=== PATIENT | female | born 1965 | race Caucasian/White ===

== ENCOUNTER 2019-04-16 02:21 | Emergency (ER) | payer MEDICARE, MEDICAID, SELFPAY ==
[2019-04-16 02:26] VITALS: BP 153/83; PULSE 94; RESP 18; TEMP 36.7; O2SAT 96; BMI 33.2
--- NOTE | 2019-04-16 02:41 | ED_ITS ---
Entered by Eliz Ruiz, acting as scribe for HPI - Extremity Injury (Upper) General: Chief Complaint: Extremity Injury, Lower Stated Complaint: L SHOULDER/L HIP PAIN Time Seen by Provider: 04/16/19 02:37 Source: patient Mode of arrival: ambulatory History of Present Illness: HPI narrative: 54 yo f came to the er pov with left hip and left shoulder injury. Onset was today. Pt states that she cannot sleep due to her fall. Pt is denying any headache at this time. MD complaint: injury to: left (shoulder and hip) Other Extremity Injury: Left: shoulder Other injuries: LLE (hip) Place: home Severity: mild Relieving factors: none Exacerbating factors: none Context: fall Review of Systems General: Reports: other (negative unless marked) Const: Denies: fever or chills Eyes: Denies: change in vision ENMT: Denies: throat pain or mouth pain Card: Denies: chest pain Resp: Denies: shortness of breath GI: Denies: abdominal pain, nausea, vomiting or diarrhea : Denies: difficulty urinating Musc: Reports: extremity pain and joint pain; Denies: back pain Skin/Breast: Denies: rash Neuro: Denies: headache or behavioral changes Psych: Denies: depression Endo: Denies: excessive urination [place]/Lymph: Denies: easy bruising All/Imm: Denies: hives PFSH ED PFSH: Statuses (acute, chronic, etc) shown below reflect problem list status as previously entered and may not be historically accurate Social History Smoking and tobacco status: former smoker Physical Exam Const: COMMON NORMALS: no apparent distress, oriented x3 and healthy appearing HENMT: COMMON NORMALS: normocephalic and external nose normal HEAD & SCALP: normocephalic NOSE: external nose normal Eye: COMMON NORMALS: PERRL PUPIL: Yes PERRL Neck/C-Spine: COMMON NORMALS: full ROM and no lymphadenopathy Chest: COMMONS NORMALS: inspection of chest normal Resp: COMMON NORMALS: normal respiratory effort, no use of accessory muscles and clear to auscultation bilaterally AUSCULTATION: clear to auscultation bilaterally Cardio: COMMON NORMALS: regular rate and regular rhythm RATE: regular rate RHYTHM: regular rhythm GI: COMMON NORMALS: normal to inspection, nondistended, normoactive bowel freya nds, soft to palpation, non-tender and no masses PALPATION: Yes soft Back/Pelvis: THORACIC SPINE/UPPER BACK: Yes normal to inspection OTHER: tender over left hip and shoulder with no abnormality Extremity: COMMON NORMALS: normal to inspection, full ROM and normal capillary refill Neuro: COMMON NORMALS: oriented x3 Psych: COMMON NORMALS: mental status grossly normal and cooperative Skin: COMMON NORMALS: no rashes or lesions noted GENERAL SKIN EXAM: no rashes or lesions noted Course Vital Signs: Vital signs: Vital Signs Temperature 98.4 F 04/16/19 03:16 Pulse Rate 95 04/16/19 03:16 Respiratory Rate 18 04/16/19 03:16 Blood Pressure 124/103 04/16/19 03:16 Pulse Oximetry 96 04/16/19 03:16 MDM - Extremity Injury (Upper) MDM Narrative: Medical decision making narrative: pt presents here with contusion from a fall. xr here is normal. pt is stable for discharge Discharge Plan Discharge Patient Disposition: Home, Self-Care Clinical Impression: Fall Qualifiers: Encounter type: initial encounter Qualified Code(s): W19.XXXA - Unspecified fall, initial encounter Contusion Qualifiers: Encounter type: initial encounter Contusion area: upper arm Laterality: left Qualified Code(s): S40.022A - Contusion of left upper arm, initial encounter Condition: Stable Prescriptions: New EC-Naprosyn 500 mg tablet,delayed release (DR/EC) 500 mg PO BID PRN (Reason: pain) Qty: 20 RF: 0 No Action aripiprazole [Abilify] 5 mg tablet 5 mg PO ONCE RF: 0 atorvastatin 80 mg tablet 80 mg PO ONCE RF: 0 cetirizine [All Day Allergy (cetirizine)] 10 mg tablet 10 mg PO ONCE RF: 0 diazepam 2 mg tablet 2 mg PO ONCE RF: 0 ferrous sulfate 325 mg (65 mg iron) tablet 325 mg PO .every other day RF: 0 levothyroxine 150 mcg tablet 150 mcg PO ONCE RF: 0 levothyroxine 25 mcg tablet 25 mcg PO ONCE RF: 0 magnesium oxide 400 mg magnesium capsule 400 mg PO ONCE RF: 0 metformin 500 mg tablet 1,000 mg PO BID RF: 0 metoprolol tartrate 25 mg tablet 25 mg PO DAILY RF: 0 nitroglycerin 0.4 mg tablet, sublingual 0.4 mg SUBLINGUAL ONCE PRN (Reason: chest pain) RF: 0 nortriptyline 25 mg capsule 25 mg PO ONCE RF: 0 pantoprazole [Protonix] 40 mg tablet,delayed release (DR/EC) 40 mg PO BID RF: 0 trazodone 100 mg tablet 100 mg PO .Q HS RF: 0 venlafaxine [Effexor XR] 75 mg capsule,extended release 24hr 75 mg PO QAM RF: 0 acetaminophen 500 mg tablet 1,000 mg PO Q8H PRN (Reason: fever or pain) RF: 0 cyanocobalamin (vitamin B-12) 2,000 mcg tablet 2,000 mcg PO DAILY RF: 0 fluticasone propionate [Flonase Allergy Relief] 50 mcg/actuation spray,suspension 1 spray INTRANASAL BID RF: 0 Levemir FlexTouch U-100 Insuln 100 unit/mL (3 mL) insulin pen 76 unit SUBCUT DAILY RF: 0 Victoza 2-Margarito 0.6 mg/0.1 mL (18 mg/3 mL) pen injector 1.8 mg SUBCUT Q24H RF: 0 polyethylene glycol 3350 [Miralax] 17 gram/dose powder 17 gm PO DAILY PRN (Reason: constipation) RF: 0 sodium chloride [Saline Nasal] 0.65 % aerosol,spray 1 spray INTRANASAL DAILY PRN (Reason: nasal congestion) RF: 0 lithium carbonate 300 mg tablet extended release 300 mg PO DAILY RF: 0 Discharge Orders: Discharge Order (Routine); Ordered 04/16/19 Ordered By: Arun Hernandez Referrals: Alberto Ordonez MD [Family Provider] - (in 3-5 days) Discharge Activity: Resume usual activity Patient Instructions: Contusion Discharge Date/Time: 04/16/19 04:10 Coding Level of Care Code ED Pressing Machine Operator for Chg Fwd The documentation recorded by the Joseph foster Stephanie Lyn, accurately reflects the service I personally performed and the decisions made by David royal Korby, MD Apr 16, 2019 02:21
--- NOTE | 2019-04-16 02:46 | XR_ITS ---
WS: [id number] Left shoulder, 3 views, 04/16/2019 Clinical Data: fall Comparison: None. Findings: No fractures or dislocations are seen. The AC joint is normal. The adjacent left clavicle, left scapu la and ribs are normal. The soft tissues are unremarkable. There are clips adjacent to the left side of the C5 and 6 vertebral bodies from surgery. XR/XR shoulder LT min 2V* [id number] Impression: Negative left shoulder.
--- NOTE | 2019-04-16 02:46 | XR_ITS ---
WS: [id number] Left hip, AP and frog leg, 04/16/2019 Clinical Data: fall Comparison: Left hip x-ray, 01/12/2019 Findings: No fractures or dislocations are seen. The hip joint is intact. The soft tissues are not remarkable. The adjacent pelvis is normal. XR/XR hip LT 2-3V wo/w pel* [id number] Impression: Negative left hip.
[2019-04-16] MEDS: HYDROcodone-acetaminophen 5-325 mg Tablet 1 TAB PO (03:05)
[2019-04-16 03:16] VITALS: BP 124/103; PULSE 95; RESP 18; TEMP 36.9; O2SAT 96
[2019-04-16 04:08] VITALS: BP 133/83; PULSE 94; RESP 18; TEMP 37.1; O2SAT 96
== END 2019-04-16 04:10 | disposition home or self-care (01) ==
PROVIDERS: Emergency Provider Emergency Medicine; Family Provider Family Medicine
DX: S40.022A Contusion of left upper arm, initial encounter (principal); W19.XXXA Unspecified fall, initial encounter; Y92.009 Unspecified place in unspecified non-institutional (private) residence as the place of occurrence of the external cause
CPT/HCPCS: 73030; 73502; 99281

== ENCOUNTER 2019-04-17 09:46 | Outpatient (CLI) | payer MEDICARE, MEDICAID, SELFPAY ==
--- NOTE | 2019-04-14 | XR_ITS ---
WS: [id number] LEFT HIP HISTORY: LEFT HIP PAIN COMPARISON: 01/12/2019 LEFT hip: No acute fracture or dislocation. Osteophytic ridging around the LEFT acetabulum is similar to the prior study. No fracture or dislocation. No bone destruction. XR/XR hip LT 2-3V wo/w pel* [id number] IMPRESSION: 1. No hip fracture. 2. Mild osteophytic ridging around the acetabulum, similar to the prior study.
--- NOTE | 2019-04-14 | XR_ITS ---
WS: [id number] LEFT SHOULDER: 3 VIEW(S) TECHNIQUE: Internal and external rotation with Y view. HISTORY: ROTATOR CUFF SYNDROME LEFT COMPARISON: None available. No fracture or dislocation or soft tissue abnormality. Mild narrowing of the AC joint and hypertrophic osteophytes. XR/XR shoulder LT min 2V* [id number] IMPRESSION: Mild AC joint osteoarthritis.
== END 2019-04-17 09:47 | disposition home or self-care (01) ==
PROVIDERS: Family Provider Family Medicine; Visit Provider Family Medicine
DX: M75.102 Unspecified rotator cuff tear or rupture of left shoulder, not specified as traumatic (principal); M25.552 Pain in left hip

== ENCOUNTER → 2019-04-20 16:39 | Outpatient (BNVA) | payer MEDICARE, MEDICAID, SELFPAY | PROVIDERS: Family Provider Family Medicine; PCP Family Medicine; Visit Provider Social Worker | DX: F33.3 Major depressive disorder, recurrent, severe with psychotic symptoms (principal); F06.1 Catatonic disorder due to known physiological condition; F43.12 Post-traumatic stress disorder, chronic; F60.3 Borderline personality disorder | CPT/HCPCS: 90832 ==

== ENCOUNTER 2019-04-21 11:27 | Emergency (ER) | payer MEDICARE, MEDICAID, SELFPAY ==
[2019-04-21 11:24] VITALS: BMI 31.6
[2019-04-21 11:28] VITALS: BP 151/109; PULSE 102; RESP 18; TEMP 36.8; O2SAT 95
--- NOTE | 2019-04-21 11:28 | ED_ITS ---
Entered by Debora Jefferson, acting as scribe for Dorcas Fishman MD, [facility] [place] HPI - Psych General: Chief Complaint: Psychiatric Symptoms Stated Complaint: HEADACHE/ AMS Source: patient Mode of arrival: EMS Limitations: no limitations History of Present Illness: HPI Narrative: 54 yo Female presents to ED with complaint of psychiatric symptoms. Pt states she was taking her morning nap like she does every day and then facility staff came in and wanted to know if she could sit up. Pt states that she sat up and that Grace got in her face and asked her what medications she has been taking. Pt states she has been taking Benadryl because she has chronic allergies. Pt states that she took 2 Benadryl this morning. Pt states that the facility staff told her that couldn't have been all she took because she shouldn't be that out of it. Pt states that she wasn't out of it, she was just sleepy. Pt states that she got irritated because the facility staff kept asking her the same questions. Pt states that she can give the Benadryl to the facility staff so that they can dispense the medication to her. Pt denies any suicidal or homicidal ideations. Pt states that she fell last week and she hurt her left ankle and left shoulder. No hallucinations MD complaint: other (Pt states she doesn't know why she is here) Onset (ago): minute(s) (Just prior to arrival) Duration: resolved prior to arrival Relieving factors: none Exacerbating factors: none Associated psychiatric symptoms: none Associated symptoms: Deny no associated symptoms, auditory hallucinations, visual hallucinations, delusions, depression, homicidal ideation, suicidal ideation, racing thoughts or other Treatments prior to arrival: none Review of Systems General: Reports: 10 or more systems reviewed and unremarkable except in HPI and below Musc: Reports: extremity pain (left ankle and shoulder pain post fall last week) Neuro: Reports: headache Psych: Denies: depression, visual hallucinations, auditory hallucinations, suicidal ideation or homicidal ideation PFSH ED PFSH: Statuses (acute, chronic, etc) shown below reflect problem list status as previously entered and may not be historically accurate Medical History (Updated 04/21/19 @ 16:24 by Dorcas Fishman MD, [facility] [place]) Anxiety (Acute) Atrial fibrillation/flutter (Acute) Bipolar disorder (Acute) CAD (coronary artery disease) (Acute) Cardiomyopathy (Acute) CHF (congestive heart failure) (Acute) COPD (chronic obstructive pulmonary disease) (Acute) Depression (Acute) Diabetes (Acute) HTN (hypertension) (Acute) Hyperglycemia (Acute) Hyperlipidemia (Acute) Hypokalemia (Acute) Myocardial infarction (Acute) Psychosis (Acute) Thyroid cancer (Acute) Surgical History (Updated 04/21/19 @ 12:53 by Debora Jefferson) History of appendectomy (Acute) History of bladder suspension procedure (Acute) History of breast augmentation (Acute) History of breast biopsy (Acute) History of (Acute) History of cholecystectomy (Acute) History of coronary angioplasty (Acute) History of hysterectomy (Acute) History of thyroidectomy (Acute) History of tonsillectomy (Acute) Hx of breast reduction, elective (Acute) Social History Smoking and tobacco status: former smoker Physical Exam Const: COMMON NORMALS: no apparent distress, average body habitus, oriented x3, no limitations, healthy appearing, alert and well nourished GENERAL APPEARANCE: well kempt HENMT: COMMON NORMALS: normocephalic, head/scalp atraumatic, hearing grossly normal bilaterally, external ears normal, EAC's normal, TM's normal bilaterally, external nose normal, nasal mucous membranes and turbinates normal, moist oral mucous membranes, oropharynx normal, dentition normal and gingiva normal HEAD & SCALP: normocephalic and atraumatic NOSE: external nose normal and nasal mucous membranes and turbinates normal EXTERNAL EAR: Yes external ears normal EXTERNAL AUDITORY CANAL: EAC's normal TYMPANIC MEMBRANE: TM's normal bilaterally Eye: COMMON NORMALS: PERRL, EOMs intact bilaterally, conjunctivae normal, no scleral icterus, no papilledema, normal visual cuevas by confrontation and fundi normal bilaterally CONJUNCTIVA: Yes conjunctivae normal PUPIL: Yes PERRL DIRECT OPHTHALMOSCOPY: Yes no papilledema and Yes fundi normal bilaterally Neck/C-Spine: COMMON NORMALS: full ROM, supple, no meningeal signs, no JVD and no carotid bruits Chest: COMMONS NORMALS: inspection of chest normal and palpation of chest normal Resp: COMMON NORMALS: normal respiratory effort, no retractions, no use of accessory muscles, clear to auscultation bilaterally and percussion normal AUSCULTATION: clear to auscultation bilaterally PERCUSSION: percussion normal Cardio: COMMON NORMALS: no JVD, regular rate, regular rhythm, S1 normal heart sound, S2 normal heart sound, no gallops, no clicks, no murmurs, no rub and peripheral pulses 2+ throughout RATE: regular rate RHYTHM: regular rhythm HEART SOUNDS: S1 normal and S2 normal PERIPHERAL PULSES: pulses 2+ throughout GI: COMMON NORMALS: normal to inspection, nondistended, normoactive bowel sounds, soft to palpation, non-tender, no hepatosplenomegaly, no masses and no bruits PALPATION: Yes soft and Yes no hepatosplenomegaly : COMMON NORMALS: Yes no CVA tenderness BLADDER/KIDNEY EXAM: Yes no CVA tenderness Back/Pelvis: COMMON NORMALS: no CVA tenderness Extremity: COMMON NORMALS: normal to inspection, full ROM, normal capillary refill, no joint enlargement, no clubbing, cyanosis or edema, no calf tenderness and no pedal edema Neuro: COMMON NORMALS: oriented x3 SENSORIUM/ORIENTATION: Yes alert MENINGEAL SIGNS: Yes no meningeal signs Psych: COMMON NORMALS: mental status grossly normal, thought process normal, cooperative, affect normal, speech normal, activity/motor behavior normal, denies hallucinations, denies homicidal ideation and denies suicidal ideation APPEARANCE: Yes well kempt ATTITUDE: Yes calm and Yes engaged ACTIVITY/MOTOR BEHAVIOR: Yes appropriate eye contact SPEECH: Yes normal speech THOUGHT PROCESS: normal thought process THOUGHT CONTENT: Yes normal thought content and No delusion(s) ATTENTION/CONCENTRATION: Yes attention grossly intact Skin: COMMON NORMALS: no rashes or lesions noted, no wounds, skin turgor normal, no jaundice, no petechiae and no mottling GENERAL SKIN EXAM: no rashes or lesions noted and turgor normal MDM - Psych Lab Data: Labs: Lab Results 04/21/19 04/21/19 04/21/19 Range/Units 11:48 11:48 11:48 WBC (4.0-10.0) 10^3/ uL RBC (4.1-5.3) 10^6/u L Hgb (11.5-15.3) g/dL Hct (37.0-47.0) % MCV (81-99) fL MCH (28.0-34.0) pg MCHC (30.0-36.0) g/dL RDW (12.1-15.1) % Plt Count (130-400) 10^3/c mm MPV (7.4-10.4) fL Neut % (Auto) % Lymph % (Auto) % [place] % (Auto) % Eos % (Auto) % Baso % (Auto) % Neut # (Auto) (1.8-7.7) 10^3/u L Lymph # (Auto) (0.8-4.8) 10^3/u L [place] # (Auto) (0.2-0.9) 10^3/u L Eos # (Auto) (0.0-0.8) 10^3/u L Baso # (Auto) (0.0-0.1) 10^3/u L Nucleated RBC % (a uto) % Nucleated RBCs # /100WBC Sodium (136-145) mmol/L Potassium (3.5-5.1) mmol/L Chloride (98-107) mmol/L Carbon Dioxide (22-29) mmol/L Anion Gap (5-19) BUN (6-20) mg/dL Creatinine (0.5-0.9) mg/dL GFR Calculation (90-130) mL/min Glucose (74-109) mg/dL Calcium (8.6-10.0) mg/Dl Total Bilirubin (0.15-1.2) mg/dL AST (0-32) U/L ALT (0-33) U/L Alkaline Phosphata se (35-105) IU/L Total Protein (6.6-8.7) g/dL Albumin (3.5-5.2) g/dL Globulin (1.3-4.6) g/dL TSH (0.27-4.20) uIU/ mL HCG, Qual Negative (Negative) Urine Color Yellow (Yellow) Urine Appearance Clear (CLEAR) Urine pH 5.0 (5-7) Ur Specific Gravit y 1.015 (1.005-1.030) Urine Protein Neg (Negative) Urine Glucose (UA) Norm (Normal) Urine Ketones Negative (Negative) Urine Occult Blood Neg (Negative) Urine Nitrate Negative (Negative) Urine Bilirubin Neg (NEGATIVE) Urine Urobilinogen Norm (Negative) mg/dL Ur Leukocyte Lety ase Negative (Negative) Salicylates (3-10) mg/dL Urine Opiates Scre en Negative (Negative) ng/mL Acetaminophen (10-30) ug/mL Ur Barbiturates Sc reen Negative (Negative) ng/mL Ur Phencyclidine S crn Negative (Negative) ng/mL Ur Amphetamines Sc reen Negative (Negative) ng/mL U Benzodiazepines Scrn Positive H (Negative) ng/mL Urine Cocaine Scre en Negative (Negative) ng/mL U Marijuana (THC) Screen Negative (Negative) ng/mL Ethyl Alcohol (0-10) mg/dL 04/21/19 04/21/19 Range/Units 12:13 12:13 WBC 11.9 H (4.0-10.0) 10^3/ uL RBC 4.54 (4.1-5.3) 10^6/u L Hgb 12.9 (11.5-15.3) g/dL Hct 41.6 (37.0-47.0) % MCV 91.6 (81-99) fL MCH 28.4 (28.0-34.0) pg MCHC 31.0 (30.0-36.0) g/dL RDW 15.8 H (12.1-15.1) % Plt Count 339 (130-400) 10^3/c mm MPV 9.8 (7.4-10.4) fL Neut % (Auto) 76.4 % Lymph % (Auto) 15.6 % [place] % (Auto) 6.0 % Eos % (Auto) 0.9 % Baso % (Auto) 0.5 % Neut # (Auto) 9.1 H (1.8-7.7) 10^3/u L Lymph # (Auto) 1.9 (0.8-4.8) 10^3/u L [place] # (Auto) 0.7 (0.2-0.9) 10^3/u L Eos # (Auto) 0.1 (0.0-0.8) 10^3/u L Baso # (Auto) 0.1 (0.0-0.1) 10^3/u L Nucleated RBC % (a uto) 0 % Nucleated RBCs # 0.0 /100WBC Sodium 140 (136-145) mmol/L Potassium 3.5 (3.5-5.1) mmol/L Chloride 99 (98-107) mmol/L Carbon Dioxide 23 (22-29) mmol/L Anion Gap 21.5 H (5-19) BUN 10 (6-20) mg/dL Creatinine 0.9 (0.5-0.9) mg/dL GFR Calculation 65.8 L (90-130) mL/min Glucose 173 H (74-109) mg/dL Calcium 9.4 (8.6-10.0) mg/Dl Total Bilirubin 0.4 (0.15-1.2) mg/dL AST 50 H (0-32) U/L ALT 97 H (0-33) U/L Alkaline Phosphata se 107 H (35-105) IU/L Total Protein 7.6 (6.6-8.7) g/dL Albumin 4.5 (3.5-5.2) g/dL Globulin 3.1 (1.3-4.6) g/dL TSH 1.14 (0.27-4.20) uIU/ mL HCG, Qual (Negative) Urine Color (Yellow) Urine Appearance (CLEAR) Urine pH (5-7) Ur Specific Gravit y (1.005-1.030) Urine Protein (Negative) Urine Glucose (UA) (Normal) Urine Ketones (Negative) Urine Occult Blood (Negative) Urine Nitrate (Negative) Urine Bilirubin (NEGATIVE) Urine Urobilinogen (Negative) mg/dL Ur Leukocyte Lety ase (Negative) Salicylates < 0.3 L (3-10) mg/dL Urine Opiates Scre en (Negative) ng/mL Acetaminophen < 5.0 L (10-30) ug/mL Ur Barbiturates Sc reen (Negative) ng/mL Ur Phencyclidine S crn (Negative) ng/mL Ur Amphetamines Sc reen (Negative) ng/mL U Benzodiazepines Scrn (Negative) ng/mL Urine Cocaine Scre en (Negative) ng/mL U Marijuana (THC) Screen (Negative) ng/mL Ethyl Alcohol < 10 (0-10) mg/dL Imaging Data^: Left Ankle Xray: Radiologist's impression: [facility] [address] [place] [address] XRay Report Signed Patient: Bella Chandler [facility]#: [id number] : 1965Acct:[id number] Age/Sex: 54 / FADM Date: 04/21/19 Loc: ER Attending Dr: Ordering Physician: Dorcas Fishman MD, [facility] [place] Date of Service: 04/21/19 Procedure(s): XR ankle LT 2V 29993 Accession Number(s): [id number] Report Number: [id number] WS: [id number] LEFT ANKLE: 2 VIEW(S) TECHNIQUE: AP and lateral. HISTORY: fall, pain COMPARISON: None available. Normal anatomic alignment with no fracture or dislocation. No joint effusion or widening of the ankle mortise. No significant degenerative changes at the joint spaces. Enthesopathy distal Achilles tendon. XR/XR ankle LT 2V 55090 IMPRESSION: Negative LEFT ankle for fracture. Dictated By:Leonor Godinez DO Signed By:Leonor Godinez DOSigned Date/Time:04/21/19 1234 DD/ 1233 Discharge Plan Discharge Patient Disposition: Home, Self-Care Clinical Impression: Encounter for psychological evaluation, Worried well Condition: Stable Prescriptions: Continued atorvastatin 80 mg tablet 80 mg PO DAILY RF: 0 ferrous sulfate 325 mg (65 mg iron) tablet 325 mg PO .every other day RF: 0 magnesium oxide 400 mg magnesium capsule 400 mg PO ONCE RF: 0 metoprolol tartrate 25 mg tablet 25 mg PO DAILY RF: 0 nitroglycerin 0.4 mg tablet, sublingual 0.4 mg SUBLINGUAL ONCE PRN (Reason: chest pain) RF: 0 nortriptyline 25 mg capsule 25 mg PO BEDTIME RF: 0 pantoprazole [Protonix] 40 mg tablet,delayed release (DR/EC) 40 mg PO BID RF: 0 trazodone 100 mg tablet 100 mg PO BEDTIME RF: 0 cyanocobalamin (vitamin B-12) 2,000 mcg tablet 2,000 mcg PO DAILY RF: 0 fluticasone propionate [Flonase Allergy Relief] 50 mcg/actuation spray,suspension 1 spray INTRANASAL BID RF: 0 Victoza 2-Margarito 0.6 mg/0.1 mL (18 mg/3 mL) pen injector 1.8 mg SUBCUT Q24H RF: 0 polyethylene glycol 3350 [Miralax] 17 gram/dose powder 17 gm PO DAILY PRN (Reason: constipation) RF: 0 lithium carbonate 300 mg tablet extended release 300 mg PO DAILY RF: 0 naproxen [EC-Naprosyn] 500 mg tablet,delayed release (DR/EC) 500 mg PO BID PRN (Reason: pain) Qty: 20 RF: 0 levothyroxine 175 mcg Tablet 175 mcg PO DAILY RF: 0 metformin 1,000 mg Tablet 1,000 mg PO BID RF: 0 Saline Nasal 0.65 % Aerosol,[place] 1 spray INTRANASAL DAILY PRN (Reason: Nasal Congestion) RF: 0 Effexor XR 75 mg Capsule,Extended Release 24hr 75 mg PO DAILY RF: 0 Zyrtec 10 mg Tablet 10 mg PO DAILY RF: 0 Valium 2 mg Tablet 2 mg PO BEDTIME RF: 0 Abilify 5 mg Tablet 5 mg PO DAILY RF: 0 Levemir U-100 Insulin 100 unit/mL Solution 76 unit SUBCUT BEDTIME RF: 0 Discharge Orders: Discharge Order (Routine); Ordered 04/21/19 Ordered By: Dorcas Fishman Referrals: Alberto Ordonez MD [Primary Care Provider] - 1-3 days Activity Restrictions/Additional Instructions: Return for any new or worsening symptoms. It is important that you allow the facility to administer all your medications including the [id number] medications. This can avoid confusion and further emergency department evaluations. Follow-up with your primary care provider within 3 days. Coding Level of Care Code ED Combat Control for Chg Fwd Exam Problem Focused The documentation recorded by the Ronny foster Carmen, accurately reflects the service I personally performed and the decisions made by Kye royal Adegoke I, MD, [facility] [place]
[2019-04-21 11:59] VITALS: RESP 18
--- NOTE | 2019-04-21 12:04 | XR_ITS ---
WS: [id number] LEFT ANKLE: 2 VIEW(S) TECHNIQUE: AP and lateral. HISTORY: fall, pain COMPARISON: None available. Normal anatomic alignment with no fracture or dislocation. No joint effusion or widening of the ankle mortise. No significant degenerative changes at the joint spaces. Enthesopathy distal Achilles tendon. XR/XR ankle LT 2V [id number] IMPRESSION: Negative LEFT ankle for fracture.
[2019-04-21 12:13] LABS: Add Urine Microscopic? NO
[2019-04-21 12:14] LABS: Bilirubin Urine Neg (NEGATIVE); Blood Urine Neg (Negative); Glucose Urine UA Norm (Normal); HCG Qualitative Urine. Negative (Negative); Ketones Urine Negative (Negative); Leukocyte Esterase Urine Negative (Negative); Nitrate Urine Negative (Negative); Protein Urine Neg (Negative); Specific Gravity, Urine 1.015 (1.005-1.030); Urine Appearance Clear (CLEAR); Urine Color Yellow (Yellow); Urobilinogen Urine Norm (Negative)
[2019-04-21 12:24] LABS: Basophils # 0.1 10^3/uL (0.0-0.1); Basophils % 0.5 %; Eosinophils # 0.1 10^3/uL (0.0-0.8); Eosinophils % 0.9 %; Hematocrit 41.6 % (37.0-47.0); Hemoglobin 12.9 g/dL (11.5-15.3); Lymphocytes # 1.9 10^3/uL (0.8-4.8); Lymphocytes % 15.6 %; Mean Corpuscular Hemoglobin 28.4 pg (28.0-34.0); Mean Corpuscular Volume 91.6 fL (81-99); Mean Platelet Volume 9.8 fL (7.4-10.4); Monocytes # 0.7 10^3/uL (0.2-0.9); Neutrophils # 9.1 10^3/uL (1.8-7.7); Neutrophils % 76.4 %; Nucleated Red Blood Cells % 0 %; Platelet Count 339 10^3/cmm (130-400); Red Blood Count 4.54 10^6/uL (4.1-5.3); Red Cell Distribution Width 15.8 % (12.1-15.1); White Blood Count 11.9 10^3/uL (4.0-10.0)
[2019-04-21 12:35] LABS: Amphetamines Screen Urine Negative (Negative); Barbiturates Screen Urine Negative (Negative); Benzodiazepines Screen Urine Positive (Negative); Cocaine Screen Urine Negative (Negative); Opiate Screen Urine Negative (Negative); PCP Screen Urine Negative (Negative); THC Screen Urine Negative (Negative)
[2019-04-21 12:53] LABS: Alanine Aminotransferase 97 U/L (0-33); Albumin Level 4.5 g/dL (3.5-5.2); Alkaline Phosphatase 107 IU/L (35-105); Anion Gap 21.5 (5-19); Aspartate Amino Transferase 50 U/L (0-32); Blood Urea Nitrogen 10 mg/dL (6-20); Calcium 9.4 mg/Dl (8.6-10.0); Carbon Dioxide 23 mmol/L (22-29); Chloride 99 mmol/L (98-107); Globulin 3.1 g/dL (1.3-4.6); Glomerular Filtration Rate 65.8 mL/min (90-130); Glucose 173 mg/dL (74-109); Potassium 3.5 mmol/L (3.5-5.1); Sodium 140 mmol/L (136-145); Thyroid Stimulating Hormone 1.14 uIU/mL (0.27-4.20); Total Bilirubin 0.4 mg/dL (0.15-1.2); Total Protein 7.6 g/dL (6.6-8.7)
[2019-04-21 12:55] LABS: Acetaminophen < 5.0 ug/mL (10-30); Alcohol Level < 10 mg/dL (0-10); Salicylate < 0.3 mg/dL (3-10)
--- NOTE | 2019-04-21 12:56 | PC.NURSE ---
Patient sleeping but restless. 1:1 sitter with patient at bedside.
--- NOTE | 2019-04-21 14:32 | PC.NURSE ---
Patient sleeping. 1:1 sitter with patient.
--- NOTE | 2019-04-21 15:06 | PC.NURSE ---
Patient sleeping. 1:1 sitter at bedside.
[2019-04-21 15:19] VITALS: BP 185/105; PULSE 104; RESP 18; O2SAT 96
[2019-04-21 15:24] VITALS: RESP 17
[2019-04-21 16:00] VITALS: BP 185/105; PULSE 104; RESP 18; O2SAT 96
--- NOTE | 2019-04-21 17:10 | P.CONIM_ITS ---
Providers/Reason for Consult Consulting Physican/Specialty*: Altaf Crooks Reason for Consult*: Evaluation for need for inpatient psychiatric treatment and lethality. Requesting Physcian: ER. Primary Care Provider: Alberto Ordonez MD Psych Consult HPI History of Present Illness Bella Chandler is a 54 year old female known to the [facility] from previous hospitalizations the last of which stated: History of Present Illness Date of Service: Apr 02, 2019 Chief Complaint: I don't know why I'm here. Never tried to kill myself. I never said I was going to kill myself. HPI: History of present illness: Bella Chandler is a 54-year-old woman who was admitted on 96 hour involuntary commitment filed by multiple members of her residential care facility. She states that in fact she probably took too much Benadryl because she has a problem with her sinuses. She says the Benadryl does help them. She felt more Benadryl would help more. She adamantly denies that she was making a suicide attempt. After they went detail a history of hoarding kqkh-acg-udqjkuu medications that all tend to be associated with her sinuses. She also apparently has a tendency to disobey rules and staff is concerned about her use of hcjz-brs-hnkbjop medications and her willingness to provide it to other residents who are intellectually disabled. She is described as emotionally volatile but not assaultive. They report problems with dizziness and unsteady gait. However in none of the affidavits is a convincing argument that she is a imminent danger to self or others. Chad Leonards at statements that are made in her affidavits. She says that she has never been in his danger to self or others. She is highly motivated to be released from the hospital today. He reports good hedonic capacity. She denies the presence of auditory or visual hallucinations. er note: HISTORY OF PRESENT ILLNESS Chief Complaint: DECREASED MENTAL STATUS. This started today and is still present but is improving. The patient has been disoriented. (Patient is a 54-year-old female who arrives to ED via EMS from [facility] where she resides for complaints of altered mental status; reports states that the custodial noticed patient was acting abnormal earlier this morning when she awoke; states she seemed to be disoriented; EMS states upon arrival patient seemed to be very anxious and was flailing her arms ; they gave her 2 mg of Ativan; upon arrival patient states she has no physical symptoms; she is able to tell me her name, date of , and follows all of my commands appropriately). The patient was not found unresponsive. [facility] resident; (custodial/[facility]). No history of chronic dementia. No change in diabetic routine. No weakness, numbness or recent fall. No difficulty walking. Mental health history: The patient states that she has had 1 prior psychiatric hospitalization at this facility several years ago. She was hospitalized for 6 weeks October 2015 with a diagnosis of major depressive disorder. She was discharged on Cymbalta, lithium, Seroquel, and prazosin. There is no history of psychosis. She had suicidal ideation but detailed no history of self-injurious acts or life- threatening suicide attempts. Outpatient [facility] note from 01/22/2019: RECENT/INTERVAL HISTORY: Cynthia is a 53 yr old female who presents to [facility] today for medication management and follow up for her major depression. She was last seen November 2018. Cynthia is doing well. Feels her medications are helping. She reports some anxiety and relates this to new staff at the [facility]. She tells me she is in a lot of pain in her hip. She states she fell out of bed when she was having a nightmare and tells me she broke her hip . We reviewed x-ray which dated her hip was not broken but pain was from arthritis. Cynthia tells me she is scheduled to see her primary care provider next week regarding her x-ray and possible referral to physical therapy. She continues to be engaged. She states her fianc? will be visiting in March next for 2 weeks. She plans on moving to [place] where he is at next year. Cynthia reports some frustration that her caseworker intake has been promoted to a new position and her therapist has left the organization. She would like to take a break from therapy at the moment. She tells me she is doing well and doesn't think she needs it. She also reports there is only 2 providers here that is able to take her insurance and they're both male. She would prefer to only see a female. Cynthia reports the following: SLEEP: Sleeping well MOOD: Is fair APPETITE: reported as adequate; tolerating medications well. LEVEL OF ENERGY: Adequate ABILITY TO DO ADL'S: Adequate LEVEL OF ANXIETY: Would like to go back to [facility] and place of the [facility] as she felt that helped her anxiety better. ABILITY TO ENJOY LIFE: Present FRIGHTENING, UNCOMFORTABLE OR RACING THOUGHTS: Denies THOUGHT OF , SUICIDE, OR VIOLENCE TOWARD OTHERS: Denies HEARING VOICES SEEING VISIONS: Denies Diagnostics: [employer] level was 0.16 June 2018. AST and ALT was increased on October 29 at 138 and 210. Hemoglobin A1c was 10.18 February 2018, lipid panel was completed with triglycerides high at 157, LDL low at 36 and H DL low at 48. 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 She definitely has issues with impulse control. So I'm sure there are some episodes where she may have intermittent explosions and then calm down very quickly. She presents now reporting that she has no concerns or anger. She takes her medication as they hand to her. She denies any lethality denies any desires to be admitted and work on anything. She reports a desire to go home and sleep bed and she contracts for safety. She discussed some interactions with her roommate this may have been a precipitant to some drama but nothing of an aggressive nature. She denies any aggressive ideation towards herself or others and functioned in the emergency room without incident. PFS NPU PFSH: Statuses (acute, chronic, etc) shown below reflect problem list status as previously entered and may not be historically accurate Medical History (Updated 04/21/19 @ 16:24 by Dorcas Fishman MD, [facility] [place]) Anxiety (Acute) Atrial fibrillation/flutter (Acute) Bipolar disorder (Acute) CAD (coronary artery disease) (Acute) Cardiomyopathy (Acute) CHF (congestive heart failure) (Acute) COPD (chronic obstructive pulmonary disease) (Acute) Depression (Acute) Diabetes (Acute) HTN (hypertension) (Acute) Hyperglycemia (Acute) Hyperlipidemia (Acute) Hypokalemia (Acute) Myocardial infarction (Acute) Psychosis (Acute) Thyroid cancer (Acute) Surgical History (Updated 04/21/19 @ 12:53 by Debora Jefferson) History of appendectomy (Acute) History of bladder suspension procedure (Acute) History of breast augmentation (Acute) History of breast biopsy (Acute) History of (Acute) History of cholecystectomy (Acute) History of coronary angioplasty (Acute) History of hysterectomy (Acute) History of thyroidectomy (Acute) History of tonsillectomy (Acute) Hx of breast reduction, elective (Acute) Social History Smoking and tobacco status: former smoker Mental Status Exam MSE Comments: This is an obese white female with adequate dress, grooming and eye contact. No abnormal movements. Cooperative exam no acute distress. Speech was normal rate and volume. Some dysarthria and poor dentition. Mood described as fine but tired, affect congruent. Thought process organized. Thought content: Patient denied any suicidal or homicidal ideations, there were no delusions reported noted, she denied any auditory or visual hallucinations. Attention and concentration are intact and memory appeared reliable but none were formally tested. She is alert and oriented ?3. Insight and judgment appeared fair. Vitals/I&O/Wt Last Vital Signs Temp 98.2 F 04/21/19 11:28 Pulse 102 H 04/21/19 18:54 Resp 18 04/21/19 18:54 BP 150/98 04/21/19 18:54 Pulse Ox 97 04/21/19 18:54 Weight last 48 hrs Weight 91.626 kg A&P Additional A&P Information Additional A&P Information: This is a 54-year-old white female from a structured living facility who presents on the request of the facility reporting concerns for behavioral dysregulation who presents without any signs or symptoms suggestive of any problems with the desire to return back to her facility at this time. 1. Continue current medication. 2. There are no signs of any acute significant psychiatric issue at this time. 3. No suggestion for need for inpatient stay. 4. Recommend following up with outpatient provider if there are concerns for increases in possible outbursts. 5. Agree with emergency room doctor that discharged to home is appropriate. Attestations NPU Medical Necessity Statement*: N/A. Deferred to emergency room Dr. bruno agree with his assessment that inpatient hospitalization is not medically necessary nor the clinically appropriate intervention at this time. Would recommend returning to current living situation and working on behavioral interventions if there are actions or behaviors that need to be corrected. Would continue current medication. 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
[2019-04-21 18:54] VITALS: BP 150/98; PULSE 102; RESP 18; O2SAT 97
== END 2019-04-21 18:55 | disposition home or self-care (01) ==
PROVIDERS: Emergency Provider Family Medicine; Family Provider Family Medicine; PCP Family Medicine
DX: Z03.89 Encounter for observation for other suspected diseases and conditions ruled out (principal); I48.91 Unspecified atrial fibrillation; I25.10 Atherosclerotic heart disease of native coronary artery without angina pectoris; I11.0 Hypertensive heart disease with heart failure; I50.9 Heart failure, unspecified; J44.9 Chronic obstructive pulmonary disease, unspecified; E11.9 Type 2 diabetes mellitus without complications; E78.5 Hyperlipidemia, unspecified; I25.2 Old myocardial infarction; Z85.850 Personal history of malignant neoplasm of thyroid; Z98.61 Coronary angioplasty status; Z87.891 Personal history of nicotine dependence; Z79.899 Other long term (current) drug therapy
CPT/HCPCS: 36415; 73600; 80053; 80307; 81003; 81025; 84443; 85025; 99284

== ENCOUNTER 2019-04-30 16:19 | Outpatient (CLI) | payer MEDICARE, MEDICAID, SELFPAY ==
--- NOTE | 2019-04-30 | US_ITS ---
WS: [id number] ULTRASOUND ABDOMEN CLINICAL INFORMATION: ABNORMAL LFTS COMPARISON: None. FINDINGS: Liver Size: Enlarged Craniocaudal length: 15.8 cm. Echogenicity: Coarse Surface nodularity: None. Mass (size and location): None. Bile ducts Intrahepatic ducts: Normal. Common bile duct diameter: 3.2 mm. Gallbladder Removed Pancreas Normal as visualized. Right kidney: Normal. Hydronephrosis: None. Size: 10.3 cm x 4.3 cm x 4.0 cm Abdominal aorta and IVC Visualized portions are normal. Ascites: None. US/US liver [id number] IMPRESSION: 1. Hepatomegaly with diffuse fatty infiltration. 2. Gallbladder has been removed. 3. No hydronephrosis in right kidney. 4. Normal common bile duct.
== END 2019-04-30 16:20 | disposition home or self-care (01) ==
LOC: RADWPI 16:21
PROVIDERS: Family Provider Family Medicine; PCP Family Medicine; Visit Provider Family Medicine
DX: K76.0 Fatty (change of) liver, not elsewhere classified (principal); R74.8 Abnormal levels of other serum enzymes; Z90.49 Acquired absence of other specified parts of digestive tract
CPT/HCPCS: 76705

== ENCOUNTER → 2019-05-11 09:49 | Outpatient (BNVA) | payer MEDICARE, MEDICAID, SELFPAY | PROVIDERS: Family Provider Family Medicine; PCP Family Medicine; Visit Provider Nurse Practitioner | DX: F60.3 Borderline personality disorder (principal); F33.3 Major depressive disorder, recurrent, severe with psychotic symptoms; F43.12 Post-traumatic stress disorder, chronic | CPT/HCPCS: 99214 ==

== ENCOUNTER → 2019-06-03 08:36 | Outpatient (BNVA) | payer MEDICARE, MEDICAID, SELFPAY | PROVIDERS: Family Provider Family Medicine; PCP Family Medicine; Visit Provider Nurse Practitioner | DX: F43.12 Post-traumatic stress disorder, chronic (principal); F33.3 Major depressive disorder, recurrent, severe with psychotic symptoms; F60.3 Borderline personality disorder | CPT/HCPCS: 99214 ==

== ENCOUNTER 2019-06-28 07:11 | Emergency (ER) | payer MEDICARE, MEDICAID, SELFPAY ==
[2019-06-28 07:12] VITALS: BP 152/89; PULSE 98; RESP 17; TEMP 36.6; O2SAT 95; BMI 31.3
--- NOTE | 2019-06-28 07:18 | ED_ITS ---
Entered by Debora Jefferson, acting as scribe for Pravin Bianchi DO HPI - Dizziness General: Chief Complaint: Dizziness Stated Complaint: HYPERGLYCEMIA Time Seen by Provider: 06/28/19 07:17 Source: patient Mode of arrival: EMS Limitations: no limitations History of Present Illness: HPI Narrative: 54 yo Female presents to ED with complaint of dizziness. Pt states that when she stands up she gets light headed and dizzy. Pt states that she has not had any nausea, vomiting, or diarrhea. Pt states that she takes 3 different insulins for her blood sugar. Pt states that her last reading yesterday was 304. Pt states that she has had pain with urination. MD elicited complaint: dizziness and lightheadedness Onset (ago): day(s) Timing: gradual onset Description: lightheadedness Context: change in body position History of similar symptoms: Yes Exacerbating factors: movement/ambulation and change in body position Relieving factors: nothing Associated symptoms: Reports no associated symptoms and other (pain with urination) Associated neuro symptoms: Reports no associated symptoms Review of Systems General: Reports: 10 or more systems reviewed and unremarkable except in HPI and below Neuro: Reports: dizziness [facility] PFSH: Medical History Anxiety Bipolar disorder Borderline personality disorder CAD (coronary artery disease) Cardiomyopathy CHF (congestive heart failure) COPD (chronic obstructive pulmonary disease) Depression Diabetes Hyperglycemia Hyperlipidemia Hypokalemia Major depressive disorder, recurrent, severe with psychotic symptoms Myocardial infarction Post-traumatic stress disorder, chronic Psychosis Thyroid cancer Surgical History History of appendectomy History of bladder suspension procedure History of breast augmentation History of breast biopsy History of History of cholecystectomy History of coronary angioplasty History of hysterectomy History of thyroidectomy History of tonsillectomy Hx of breast reduction, elective Social History Smoking and tobacco status: former smoker History of recent travel: No Physical Exam Const: COMMON NORMALS: no apparent distress, average body habitus, oriented x3, no limitations, healthy appearing, alert and well nourished HENMT: COMMON NORMALS: normocephalic, head/scalp atraumatic, hearing grossly normal bilaterally, external ears normal, EAC's normal, TM's normal bilaterally, external nose normal, nasal mucous membranes and turbinates normal, oropharynx normal, dentition normal and gingiva normal; oral mucous membranes not moist HEAD & SCALP: normocephalic and atraumatic NOSE: external nose normal and nasal mucous membranes and turbinates normal EXTERNAL EAR: Yes external ears normal EXTERNAL AUDITORY CANAL: EAC's normal TYMPANIC MEMBRANE: TM's normal bilaterally MOUTH: moist mucous membranes abnormal Details: parched Eye: COMMON NORMALS: PERRL, EOMs intact bilaterally, conjunctivae normal, no scleral icterus, no papilledema, normal visual cuevas by confrontation and fundi normal bilaterally CONJUNCTIVA: Yes conjunctivae normal PUPIL: Yes PERRL DIRECT OPHTHALMOSCOPY: Yes no papilledema and Yes fundi normal bilaterally Neck/C-Spine: COMMON NORMALS: full ROM, no lymphadenopathy, supple, no meningeal signs, no JVD, thyroid normal and no carotid bruits THYROID: thyroid normal Chest: COMMONS NORMALS: inspection of chest normal and palpation of chest n ormal Resp: COMMON NORMALS: normal respiratory effort, no retractions, no use of accessory muscles, clear to auscultation bilaterally and percussion normal AUSCULTATION: clear to auscultation bilaterally PERCUSSION: percussion normal Cardio: COMMON NORMALS: no JVD, regular rate, regular rhythm, S1 normal heart sound, S2 normal heart sound, no gallops, no clicks, no murmurs, no rub and peripheral pulses 2+ throughout RATE: regular rate RHYTHM: regular rhythm HEART SOUNDS: S1 normal and S2 normal PERIPHERAL PULSES: pulses 2+ t hroughout GI: COMMON NORMALS: normal to inspection, nondistended, normoactive bowel sounds, soft to palpation, non-tender, no hepatosplenomegaly, no masses and no bruits PALPATION: Yes soft and Yes no hepatosplenomegaly : COMMON NORMALS: Yes no CVA tenderness and Yes external appearance normal BLADDER/KIDNEY EXAM: Yes no CVA tenderness Back/Pelvis: COMMON NORMALS: no CVA tenderness, thoracic and lumbar spine normal to inspection, no thoracic nor lumbar tenderness, thoraco-lumbar ROM normal and straight leg raise negative bilaterally Extremity: COMMON NORMALS: normal to inspection, full ROM, normal capillary refill, no joint enlargement, no clubbing, cyanosis or edema, no calf tenderness and no pedal edema Neuro: COMMON NORMALS: oriented x3 SENSORIUM/ORIENTATION: Yes alert MENINGEAL SIGNS: Yes no meningeal signs Skin: COMMON NORMALS: no rashes or lesions noted, no wounds, skin turgor normal, no jaundice, no petechiae and no mottling GENERAL SKIN EXAM: no aure hes or lesions noted and turgor normal Course Vital Signs: Vital signs: Vital Signs Temperature 98 F 06/28/19 07:12 Pulse Rate 70 06/28/19 08:03 Respiratory Rate 14 06/28/19 08:03 Blood Pressure 152/89 06/28/19 08:03 Pulse Oximetry 98 06/28/19 08:06 MDM - Dizziness Lab Data: Labs: Lab Results 06/28/19 06/28/19 06/28/19 Range/Units 07:36 07:36 07:56 WBC 11.3 H (4.0-10.0) 10^3/ uL RBC 4.73 (4.1-5.3) 10^6/u L Hgb 12.8 (11.5-15.3) g/dL Hct 41.6 (37.0-47.0) % MCV 87.9 (81-99) fL MCH 27.1 L (28.0-34.0) pg MCHC 30.8 (30.0-36.0) g/dL RDW 14.4 (12.1-15.1) % Plt Count 320 (130-400) 10^3/c mm MPV 9.9 (7.4-10.4) fL Neut % (Auto) 75.6 % Lymph % (Auto) 15.4 % Hancock % (Auto) 6.0 % Eos % (Auto) 1.6 % Baso % (Auto) 0.5 % Neut # (Auto) 8.5 H (1.8-7.7) 10^3/u L Lymph # (Auto) 1.7 (0.8-4.8) 10^3/u L Hancock # (Auto) 0.7 (0.2-0.9) 10^3/u L Eos # (Auto) 0.2 (0.0-0.8) 10^3/u L Baso # (Auto) 0.1 (0.0-0.1) 10^3/u L Nucleated RBC % (a uto) 0 % Nucleated RBCs # 0.0 /100WBC Sodium 141 (136-145) mmol/L Potassium 3.6 (3.5-5.1) mmol/L Chloride 99 (98-107) mmol/L Carbon Dioxide 30 H (22-29) mmol/L Anion Gap 15.6 (5-19) BUN 8 (6-20) mg/dL Creatinine 0.7 (0.5-0.9) mg/dL GFR Calculation 87.9 L (90-130) mL/min Glucose 326 H (65-115) mg/dL Calculated Osmolal ity 301 H (285-295) mOsm/k g Calcium 9.5 (8.5-10.5) mg/dL Total Bilirubin 0.4 (0.15-1.2) mg/dL AST 40 H (0-32) U/L ALT 48 H (0-33) U/L Alkaline Phosphata se 84 (35-105) IU/L Total Protein 8.3 (6.6-8.7) g/dL Albumin 4.5 (3.5-5.2) g/dL Globulin 3.8 (1.3-4.6) g/dL Urine Color Yellow (Yellow) Urine Appearance Clear (CLEAR) Urine pH 6 (5-7) Ur Specific Gravit y 1.010 (1.005-1.030) Urine Protein Neg (Negative) Urine Glucose (UA) 4+ H (Normal) Urine Ketones Negative (Negative) Urine Blood Neg (Negative) Urine Nitrate Negative (Negative) Urine Bilirubin Neg (NEGATIVE) Urine Urobilinogen Norm (Negative) mg/dL Ur Leukocyte Lety ase Negative (Negative) Discharge Plan Discharge Patient Disposition: Home, Self-Care Clinical Impression: Orthostatic hypotension, Dizziness Condition: Stable Prescriptions: New meclizine 25 mg tablet 25 mg PO QID PRN (Reason: dizziness) Qty: 20 RF: 0 No Action nortriptyline 25 mg capsule 25 mg PO BEDTIME Qty: 30 RF: 0 atorvastatin 80 mg tablet 80 mg PO DAILY RF: 0 ferrous sulfate 325 mg (65 mg iron) tablet 325 mg PO .every other day RF: 0 magnesium oxide 400 mg magnesium capsule 400 mg PO ONCE RF: 0 metoprolol tartrate 25 mg tablet 25 mg PO DAILY RF: 0 nitroglycerin 0.4 mg tablet, sublingual 0.4 mg SUBLINGUAL ONCE PRN (Reason: chest pain) RF: 0 pantoprazole [Protonix] 40 mg tablet,delayed release (DR/EC) 40 mg PO BID RF: 0 fluticasone propionate [Flonase Allergy Relief] 50 mcg/actuation spray,suspension 1 spray INTRANASAL BID RF: 0 Victoza 2-Margarito 0.6 mg/0.1 mL (18 mg/3 mL) pen injector 1.8 mg SUBCUT Q24H RF: 0 polyethylene glycol 3350 [Miralax] 17 gram/dose powder 17 gm PO DAILY PRN (Reason: constipation) RF: 0 cyanocobalamin (vitamin B-12) 2,000 mcg tablet 1,000 mcg PO DAILY RF: 0 aripiprazole [Abilify] 10 mg tablet 10 mg PO DAILY Qty: 30 RF: 0 citalopram [Celexa] 20 mg tablet 20 mg PO QDAY Qty: 30 RF: 0 lithium carbonate 300 mg tablet extended release 300 mg PO DAILY Qty: 30 RF: 0 trazodone 100 mg tablet 200 mg PO BEDTIME Qty: 60 RF: 0 Valium 2 mg tablet 2 mg PO BEDTIME Qty: 30 RF: 0 insulin aspart U-100 100 unit/mL solution See Rx Instructions SUBCUT TID RF: 0 amlodipine 5 mg tablet 5 mg PO DAILY 30 Days Qty: 30 RF: 3 naproxen [EC-Naprosyn] 500 mg tablet,delayed release (DR/EC) 500 mg PO BID PRN (Reason: pain) Qty: 20 RF: 0 levothyroxine 175 mcg Tablet 175 mcg PO DAILY RF: 0 metformin 1,000 mg Tablet 1,000 mg PO BID RF: 0 Saline Nasal 0.65 % Aerosol,[place] 1 spray INTRANASAL DAILY PRN (Reason: Nasal Congestion) RF: 0 Zyrtec 10 mg Tablet 10 mg PO DAILY RF: 0 Levemir U-100 Insulin 100 unit/mL Solution 76 unit SUBCUT BEDTIME RF: 0 Discharge Orders: Discharge Order (Routine); Ordered 06/28/19 Ordered By: Pravin Bianchi Referrals: Alberto Ordonez MD [Primary Care Provider] - Coding Level of Care Code ED Box Spring Maker for Chg Fwd Exam Comprehensive The documentation recorded by the Ronny foster Carmen, accurately reflects the service I personally performed and the decisions made by me, Pravin Bianchi, DO Jun 28, 2019 07:11
[2019-06-28 07:40] LABS: Basophils # 0.1 10^3/uL (0.0-0.1); Basophils % 0.5 %; Eosinophils # 0.2 10^3/uL (0.0-0.8); Eosinophils % 1.6 %; Hematocrit 41.6 % (37.0-47.0); Hemoglobin 12.8 g/dL (11.5-15.3); Lymphocytes # 1.7 10^3/uL (0.8-4.8); Lymphocytes % 15.4 %; Mean Corpuscular HGB Conc 30.8 g/dL (30.0-36.0); Mean Corpuscular Hemoglobin 27.1 pg (28.0-34.0); Mean Corpuscular Volume 87.9 fL (81-99); Mean Platelet Volume 9.9 fL (7.4-10.4); Monocytes # 0.7 10^3/uL (0.2-0.9); Neutrophils # 8.5 10^3/uL (1.8-7.7); Neutrophils % 75.6 %; Nucleated Red Blood Cells % 0 %; Platelet Count 320 10^3/cmm (130-400); Red Blood Count 4.73 10^6/uL (4.1-5.3); Red Cell Distribution Width 14.4 % (12.1-15.1); White Blood Count 11.3 10^3/uL (4.0-10.0)
[2019-06-28] MEDS: sodium chloride 0.9% 1,000 ML 999 ML IV (07:59)
[2019-06-28 08:00] LABS: Alanine Aminotransferase 48 U/L (0-33); Albumin Level 4.5 g/dL (3.5-5.2); Alkaline Phosphatase 84 IU/L (35-105); Anion Gap 15.6 (5-19); Aspartate Amino Transferase 40 U/L (0-32); Blood Urea Nitrogen 8 mg/dL (6-20); Calcium 9.5 mg/dL (8.5-10.5); Carbon Dioxide 30 mmol/L (22-29); Chloride 99 mmol/L (98-107); Globulin 3.8 g/dL (1.3-4.6); Glomerular Filtration Rate 87.9 mL/min (90-130); Glucose 326 mg/dL (65-115); Osmolality Calculated 301 mOsm/kg (285-295); Potassium 3.6 mmol/L (3.5-5.1); Sodium 141 mmol/L (136-145); Total Bilirubin 0.4 mg/dL (0.15-1.2); Total Protein 8.3 g/dL (6.6-8.7)
[2019-06-28 08:03] VITALS: BP 152/89; PULSE 70; RESP 14
[2019-06-28 08:06] VITALS: O2SAT 98
[2019-06-28] MEDS: insulin regular-human 100 units/1 mL 5 UNIT IVP (08:41)
[2019-06-28 08:45] LABS: Add Urine Microscopic? NO
[2019-06-28 08:50] LABS: Bilirubin Urine Neg (NEGATIVE); Blood Urine Neg (Negative); Glucose Urine UA 4+ (Normal); Ketones Urine Negative (Negative); Leukocyte Esterase Urine Negative (Negative); Nitrate Urine Negative (Negative); Protein Urine Neg (Negative); Urine Appearance Clear (CLEAR); Urine Color Yellow (Yellow); Urobilinogen Urine Norm (Negative); pH Urine 6 (5-7)
[2019-06-28 09:10] VITALS: BP 156/94; PULSE 98; RESP 14; O2SAT 98
== END 2019-06-28 09:11 | disposition home or self-care (01) ==
PROVIDERS: Emergency Provider Family Medicine; Family Provider Family Medicine; PCP Family Medicine
DX: I95.1 Orthostatic hypotension (principal); I25.10 Atherosclerotic heart disease of native coronary artery without angina pectoris; I25.2 Old myocardial infarction; I50.9 Heart failure, unspecified; J44.9 Chronic obstructive pulmonary disease, unspecified; E78.5 Hyperlipidemia, unspecified; Z79.4 Long term (current) use of insulin; Z79.51 Long term (current) use of inhaled steroids; Z87.891 Personal history of nicotine dependence
CPT/HCPCS: 12345; 36415; 80053; 81003; 85025; 96361; 96374; 96375; 99283; J1815; J7030

== ENCOUNTER → 2019-07-02 09:37 | Outpatient (BNVA) | payer MEDICARE, MEDICAID, SELFPAY | PROVIDERS: Family Provider Family Medicine; PCP Family Medicine; Visit Provider Nurse Practitioner | DX: F43.12 Post-traumatic stress disorder, chronic (principal); F33.3 Major depressive disorder, recurrent, severe with psychotic symptoms; F60.3 Borderline personality disorder | CPT/HCPCS: 99214 ==

== ENCOUNTER 2019-07-07 15:36 | Emergency (ER) | payer MEDICARE, MEDICAID, SELFPAY ==
[2019-07-07 15:37] VITALS: BP 136/84; PULSE 95; RESP 20; TEMP 36.7; O2SAT 96; BMI 32.5
--- NOTE | 2019-07-07 15:44 | ECG_ITS ---
Measurements Intervals [place] Rate: 89 P: 54 MN: 152 QRS: 11 QRSD: 90 T: 66 QT: 393 QTc: 481 SINUS RHYTHM INTERPRETATION BASED ON A DEFAULT AGE OF 40 YEARS Compared to ECG 04/01/2019 12:43:23 T-wave abnormality no longer present Electronically Signed On 07-07-2019 20:18:38 CDT by Jose Alejandro Jeffrey M.D. [email or web address]
--- NOTE | 2019-07-07 15:44 | XR_ITS ---
WS: [id number] Portable AP upright chest, 07/07/2019 Clinical Data: cough/congestion Comparison: Chest, 04/01/2019. Findings: No nodules, masses or effusions are seen. The heart is normal. The pulmonary vascularity is unremarkable. No pneumonia or pneumothorax is seen. There are clips on the left side of the neck in the supra clavicular region from surgery. XR/XR chest 1V portable [id number] Impression:
--- NOTE | 2019-07-07 15:48 | ED_ITS ---
Entered by Sonam Quiroga, acting as scribe for Pravin Bianchi DO Documented by User: Pravin Bianchi DO 07/07/19 17:30 HPI - Chest Pain General: Chief Complaint: Chest Pain Stated Complaint: chest pain Time Seen by Provider: 07/07/19 15:39 Source: patient Mode of arrival: ambulatory Limitations: no limitations History of Present Illness: HPI narrative: 54 yo female presents with chest pain. pt states this started just seating captain. pt was seen at urgent care for a sinus recheck and they sent her to the ED. MD complaint: chest pain Onset (ago): hour(s) (just seating captain) Timing of current episode: constant Onset: during rest Pain location: substernal Pain radiation: none Severity: moderate Quality: sharp and other (pressure) Relieving factors: nothing Exacerbating factors: nothing Context: recent illness (sinus problems) Associated symptoms: Reports dyspnea and other (diarrhea) Treatment prior to arrival: other (pt was at Dr. Ordonez office for sinus problem follow up, sent to the ED for chest pain.) Review of Systems General: Reports: 10 or more systems reviewed and unremarkable except in HPI and below Card: Reports: chest pain Resp: Reports: shortness of breath PFSH ED PFSH: Social History Smoking and tobacco status: former smoker History of recent travel: No Physical Exam Const: COMMON NORMALS: no apparent distress, average body habitus, oriented x3, no limitations, healthy appearing, alert and well nourished HENMT: COMMON NORMALS: normocephalic, head/scalp atraumatic, hearing grossly normal bilaterally, external ears normal, EAC's normal, TM's normal bilaterally, external nose normal, nasal mucous membranes and turbinates normal, moist oral mucous membranes, oropharynx normal, dentition normal and gingiva normal HEAD & SCALP: normocephalic and atraumatic NOSE: external nose normal and nasal mucous membranes and turbinates normal EXTERNAL EAR: Yes external ears normal EXTERNAL AUDITORY CANAL: EAC's normal TYMPANIC MEMBRANE: TM's normal bilaterally Eye: COMMON NORMALS: PERRL, EOMs intact bilaterally, conjunctivae normal, no scleral icterus, no papilledema, normal visual cuevas by confrontation and fundi normal bilaterally CONJUNCTIVA: Yes conjunctivae normal PUPIL: Yes PERRL DIRECT OPHTHALMOSCOPY: Yes no papilledema and Yes fundi normal bilaterally Neck/C-Spine: COMMON NORMALS: full ROM, no lymphadenopathy, supple, no meningeal signs, no JVD, thyroid normal and no carotid bruits THYROID: thyroid normal Cardio: COMMON NORMALS: no JVD, regular rate, regular rhythm, S1 normal heart sound, S2 normal heart sound, no gallops, no clicks, no murmurs, no rub and peripheral pulses 2+ throughout RATE: regular rate RHYTHM: regular rhythm HEART SOUNDS: S1 normal and S2 normal PERIPHERAL PULSES: pulses 2+ throughout GI: COMMON NORMALS: normal to inspection, nondistended, normoactive bowel sounds, soft to palpation, non-tender, no hepatosplenomegaly, no masses and no bruits PALPATION: Yes soft and Yes no hepatosplenomegaly : COMMON NORMALS: Yes no CVA tenderness and Yes external appearance normal BLADDER/KIDNEY EXAM: Yes no CVA tenderness Back/Pelvis: COMMON NORMALS: no CVA tenderness, thoracic and lumbar spine normal to inspection, no thoracic nor lumbar tenderness, thoraco-lumbar ROM normal and straight leg raise negative bilaterally Extremity: COMMON NORMALS: normal to inspection, full ROM, normal capillary refill, no joint enlargement, no clubbing, cyanosis or edema, no calf tenderness and no pedal edema Neuro: COMMON NORMALS: oriented x3 SENSORIUM/ORIENTATION: Yes alert MENINGEAL SIGNS: Yes no meningeal signs Skin: COMMON NORMALS: no rashes or lesions noted, no wounds, skin turgor normal, no jaundice, no petechiae and no mottling GENERAL SKIN EXAM: no rashes or lesions noted and turgor normal Course Vital Signs: Vital signs: Vital Signs Temperature 98.1 F 07/07/19 15:37 Pulse Rate 95 07/07/19 15:37 Respiratory Rate 20 H 07/07/19 15:37 Blood Pressure 136/84 07/07/19 15:37 Pulse Oximetry 98 07/07/19 15:54 MDM - Chest Pain Lab Data: Labs: Lab Results 07/07/19 07/07/19 07/07/19 Range/Units 15:53 15:53 15:53 WBC 11.6 H (4.0-10.0) 10^3/ uL RBC 4.38 (4.1-5.3) 10^6/u L Hgb 11.8 (11.5-15.3) g/dL Hct 38.8 (37.0-47.0) % MCV 88.6 (81-99) fL MCH 26.9 L (28.0-34.0) pg MCHC 30.4 (30.0-36.0) g/dL RDW 14.4 (12.1-15.1) % Plt Count 291 (130-400) 10^3/c mm MPV 10.3 (7.4-10.4) fL Neut % (Auto) 68.1 % Lymph % (Auto) 20.3 % Mcminn % (Auto) 7.1 % Eos % (Auto) 3.5 % Baso % (Auto) 0.3 % Neut # (Auto) 7.9 H (1.8-7.7) 10^3/u L Lymph # (Auto) 2.4 (0.8-4.8) 10^3/u L Mcminn # (Auto) 0.8 (0.2-0.9) 10^3/u L Eos # (Auto) 0.4 (0.0-0.8) 10^3/u L Baso # (Auto) 0.0 (0.0-0.1) 10^3/u L Nucleated RBC % (a uto) 0 % Nucleated RBCs # 0.0 /100WBC D-Dimer (0-0.59) ug/mIFE U Sodium 136 (136-145) mmol/L Potassium 3.4 L (3.5-5.1) mmol/L Chloride 98 (98-107) mmol/L Carbon Dioxide 24 (22-29) mmol/L Anion Gap 17.4 (5-19) BUN 9 (6-20) mg/dL Creatinine 0.8 (0.5-0.9) mg/dL GFR Calculation 75.3 L (90-130) mL/min Glucose 306 H (65-115) mg/dL Calculated Osmolal ity 290 (285-295) mOsm/k g Calcium 9.2 (8.5-10.5) mg/dL Total Bilirubin 0.3 (0.15-1.2) mg/dL AST 21 (0-32) U/L ALT 36 H (0-33) U/L Alkaline Phosphata se 86 (35-105) IU/L Troponin T Baselin e 6 (0-10) ng/mL Troponin T 120 Min [place] (0-10) ng/mL Delta Troponin T (0-10) ABS# NT-Pro-B Natriuret Pep 16 (0-125) pg/mL Total Protein 7.1 (6.6-8.7) g/dL Albumin 3.8 (3.5-5.2) g/dL Globulin 3.3 (1.3-4.6) g/dL 07/07/19 07/07/19 Range/Units 15:53 17:42 WBC (4.0-10.0) 10^3/ uL RBC (4.1-5.3) 10^6/u L Hgb (11.5-15.3) g/dL Hct (37.0-47.0) % MCV (81-99) fL MCH (28.0-34.0) pg MCHC (30.0-36.0) g/dL RDW (12.1-15.1) % Plt Count (130-400) 10^3/c mm MPV (7.4-10.4) fL Neut % (Auto) % Lymph % (Auto) % Mcminn % (Auto) % Eos % (Auto) % Baso % (Auto) % Neut # (Auto) (1.8-7.7) 10^3/u L Lymph # (Auto) (0.8-4.8) 10^3/u L Mcminn # (Auto) (0.2-0.9) 10^3/u L Eos # (Auto) (0.0-0.8) 10^3/u L Baso # (Auto) (0.0-0.1) 10^3/u L Nucleated RBC % (a uto) % Nucleated RBCs # /100WBC D-Dimer 0.27 (0-0.59) ug/mIFE U Sodium (136-145) mmol/L Potassium (3.5-5.1) mmol/L Chloride (98-107) mmol/L Carbon Dioxide (22-29) mmol/L Anion Gap (5-19) BUN (6-20) mg/dL Creatinine (0.5-0.9) mg/dL GFR Calculation (90-130) mL/min Glucose (65-115) mg/dL Calculated Osmolal ity (285-295) mOsm/k g Calcium (8.5-10.5) mg/dL Total Bilirubin (0.15-1.2) mg/dL AST (0-32) U/L ALT (0-33) U/L Alkaline Phosphata se (35-105) IU/L Troponin T Baselin e (0-10) ng/mL Troponin T 120 Min [place] 6.00 (0-10) ng/mL Delta Troponin T 0 (0-10) ABS# NT-Pro-B Natriuret Pep (0-125) pg/mL Total Protein (6.6-8.7) g/dL Albumin (3.5-5.2) g/dL Globulin (1.3-4.6) g/dL Discharge Plan Discharge Patient Disposition: Home, Self-Care Clinical Impression: Chest pain Qualifiers: Chest pain type: unspecified Qualified Code(s): R07.9 - Chest pain, unspecified Condition: Stable Prescriptions: No Action magnesium oxide 400 mg magnesium capsule 400 mg PO BID RF: 0 metoprolol tartrate 25 mg tablet 25 mg PO DAILY RF: 0 nitroglycerin 0.4 mg tablet, sublingual 0.4 mg SUBLINGUAL ONCE PRN (Reason: chest pain) RF: 0 fluticasone propionate [Flonase Allergy Relief] 50 mcg/actuation spray,suspension 2 spray INTRANASAL BID RF: 0 Victoza 2-Margarito 0.6 mg/0.1 mL (18 mg/3 mL) pen injector 1.8 mg SUBCUT Q24H RF: 0 polyethylene glycol 3350 [Miralax] 17 gram/dose powder 17 gm PO DAILY PRN (Reason: constipation) RF: 0 cyanocobalamin (vitamin B-12) 2,000 mcg tablet 2,000 mcg PO DAILY RF: 0 insulin aspart U-100 100 unit/mL solution See Rx Instructions SUBCUT TID RF: 0 aripiprazole [Abilify] 15 mg tablet 15 mg PO DAILY Qty: 30 RF: 1 lithium carbonate 300 mg tablet extended release 300 mg PO DAILY Qty: 30 RF: 0 levothyroxine 175 mcg Tablet 150 mcg PO DAILY RF: 0 metformin 1,000 mg Tablet 1,000 mg PO BID RF: 0 sodium chloride [Saline Nasal] 0.65 % Aerosol,[place] 1 spray INTRANASAL DAILY PRN (Reason: Nasal Congestion) RF: 0 cetirizine [Zyrtec] 10 mg Tablet 10 mg PO DAILY RF: 0 Levemir U-100 Insulin 100 unit/mL Solution 76 unit SUBCUT BEDTIME RF: 0 meclizine 25 mg tablet 25 mg PO QID PRN (Reason: dizziness) Qty: 20 RF: 0 Zofran 4 mg Tablet 4 mg PO Q6H PRN (Reason: Nausea) RF: 0 venlafaxine 150 mg Capsule,Extended Release 24hr See Rx Instructions .ROUTE .COMPLEX RF: 0 clopidogrel 75 mg Tablet 75 mg PO DAILY RF: 0 aspirin 81 mg Tablet,Delayed Release (Dr/Ec) 81 mg PO DAILY RF: 0 Tylenol Extra Strength 500 mg Tablet 1,000 mg PO Q6H PRN (Reason: Pain) RF: 0 Refresh Tears 0.5 % Drops See Rx Instructions .ROUTE .COMPLEX RF: 0 zolpidem 10 mg Tablet 10 mg PO BEDTIME RF: 0 ProAir HFA 90 mcg/actuation Hfa Aerosol Inhaler 2 puff INHALATION QID PRN (Reason: Shortness Of Breath) RF: 0 rosuvastatin 20 mg Tablet 20 mg PO DAILY RF: 0 memantine 10 mg Tablet 10 mg PO DAILY RF: 0 tizanidine 4 mg Capsule 4 mg PO TID PRN (Reason: Spasms) RF: 0 Mucinex 600 mg Tablet Extended Release 12hr 600 mg PO BID PRN (Reason: Congestion) RF: 0 nortriptyline 25 mg capsule 50 mg PO BEDTIME RF: 0 Valium 2 mg tablet 2 mg PO BID PRN (Reason: UNKNOWN) RF: 0 Discharge Orders: Discharge Order (Routine); Ordered 07/07/19 Ordered By: Arun Hernandez Referrals: Alberto Ordonez MD [Primary Care Provider] - Discharge Diet: Advance as tolerated Discharge Activity: Resume usual activity Patient Instructions: Chest Pain (ED) Coding Level of Care Code ED Power Station Operator for g Fwd Exam Comprehensive Documented by User: Arun Hernandez MD 07/07/19 18:32 HPI - Chest Pain General: Chief Complaint: Chest Pain Stated Complaint: chest pain Time Seen by Provider: 07/07/19 15:39 PFSH ED PFSH: Social History Smoking and tobacco status: former smoker History of recent travel: No Course Vital Signs: Vital signs: Vital Signs Temperature 98.1 F 07/07/19 15:37 Pulse Rate 95 07/07/19 15:37 Respiratory Rate 20 H 07/07/19 15:37 Blood Pressure 136/84 07/07/19 15:37 Pulse Oximetry 98 07/07/19 15:54 MDM - Chest Pain MDM Narrative: Medical decision making narrative: I took this pt over from dr. bianchi. She has been pain free here and initial and repeat troponins are normal. Pt ekg is normal as well. She has no signs of pe or acute coronary event. Pt is stable for discharge and is to follow up with pcp in 2-4 days and return if worsening. she understands and agrees to plan. Lab Data: Labs: Lab Results 07/07/19 07/07/19 07/07/19 Range/Units 15:53 15:53 15:53 WBC 11.6 H (4.0-10.0) 10^3/ uL RBC 4.38 (4.1-5.3) 10^6/u L Hgb 11.8 (11.5-15.3) g/dL Hct 38.8 (37.0-47.0) % MCV 88.6 (81-99) fL MCH 26.9 L (28.0-34.0) pg MCHC 30.4 (30.0-36.0) g/dL RDW 14.4 (12.1-15.1) % Plt Count 291 (130-400) 10^3/c mm MPV 10.3 (7.4-10.4) fL Neut % (Auto) 68.1 % Lymph % (Auto) 20.3 % Mcminn % (Auto) 7.1 % Eos % (Auto) 3.5 % Baso % (Auto) 0.3 % Neut # (Auto) 7.9 H (1.8-7.7) 10^3/u L Lymph # (Auto) 2.4 (0.8-4.8) 10^3/u L Mcminn # (Auto) 0.8 (0.2-0.9) 10^3/u L Eos # (Auto) 0.4 (0.0-0.8) 10^3/u L Baso # (Auto) 0.0 (0.0-0.1) 10^3/u L Nucleated RBC % (a uto) 0 % Nucleated RBCs # 0.0 /100WBC D-Dimer (0-0.59) ug/mIFE U Sodium 136 (136-145) mmol/L Potassium 3.4 L (3.5-5.1) mmol/L Chloride 98 (98-107) mmol/L Carbon Dioxide 24 (22-29) mmol/L Anion Gap 17.4 (5-19) BUN 9 (6-20) mg/dL Creatinine 0.8 (0.5-0.9) mg/dL GFR Calculation 75.3 L (90-130) mL/min Glucose 306 H (65-115) mg/dL Calculated Osmolal ity 290 (285-295) mOsm/k g Calcium 9.2 (8.5-10.5) mg/dL Total Bilirubin 0.3 (0.15-1.2) mg/dL AST 21 (0-32) U/L ALT 36 H (0-33) U/L Alkaline Phosphata se 86 (35-105) IU/L Troponin T Baselin e 6 (0-10) ng/mL Troponin T 120 Min [place] (0-10) ng/mL Delta Troponin T (0-10) ABS# NT-Pro-B Natriuret Pep 16 (0-125) pg/mL Total Protein 7.1 (6.6-8.7) g/dL Albumin 3.8 (3.5-5.2) g/dL Globulin 3.3 (1.3-4.6) g/dL 07/07/19 07/07/19 Range/Units 15:53 17:42 WBC (4.0-10.0) 10^3/ uL RBC (4.1-5.3) 10^6/u L Hgb (11.5-15.3) g/dL Hct (37.0-47.0) % MCV (81-99) fL MCH (28.0-34.0) pg MCHC (30.0-36.0) g/dL RDW (12.1-15.1) % Plt Count (130-400) 10^3/c mm MPV (7.4-10.4) fL Neut % (Auto) % Lymph % (Auto) % Mcminn % (Auto) % Eos % (Auto) % Baso % (Auto) % Neut # (Auto) (1.8-7.7) 10^3/u L Lymph # (Auto) (0.8-4.8) 10^3/u L Mcminn # (Auto) (0.2-0.9) 10^3/u L Eos # (Auto) (0.0-0.8) 10^3/u L Baso # (Auto) (0.0-0.1) 10^3/u L Nucleated RBC % (a uto) % Nucleated RBCs # /100WBC D-Dimer 0.27 (0-0.59) ug/mIFE U Sodium (136-145) mmol/L Potassium (3.5-5.1) mmol/L Chloride (98-107) mmol/L Carbon Dioxide (22-29) mmol/L Anion Gap (5-19) BUN (6-20) mg/dL Creatinine (0.5-0.9) mg/dL GFR Calculation (90-130) mL/min Glucose (65-115) mg/dL Calculated Osmolal ity (285-295) mOsm/k g Calcium (8.5-10.5) mg/dL Total Bilirubin (0.15-1.2) mg/dL AST (0-32) U/L ALT (0-33) U/L Alkaline Phosphata se (35-105) IU/L Troponin T Baselin e (0-10) ng/mL Troponin T 120 Min [place] 6.00 (0-10) ng/mL Delta Troponin T 0 (0-10) ABS# NT-Pro-B Natriuret Pep (0-125) pg/mL Total Protein (6.6-8.7) g/dL Albumin (3.5-5.2) g/dL Globulin (1.3-4.6) g/dL EKG Data^: EKG 1: Attestation: I personally reviewed and interpreted this EKG as follows: EKG interpretation date: 07/07/19 EKG interpretation time: 17:24 Interpretation: nsr hr [address] o r t wave abnormalities qrs 90 qtc 440 Discharge Plan Discharge Patient Disposition: Home, Self-Care Clinical Impression: Chest pain Qualifiers: Chest pain type: unspecified Qualified Code(s): R07.9 - Chest pain, unspecified Condition: Stable Prescriptions: No Action magnesium oxide 400 mg magnesium capsule 400 mg PO BID RF: 0 metoprolol tartrate 25 mg tablet 25 mg PO DAILY RF: 0 nitroglycerin 0.4 mg tablet, sublingual 0.4 mg SUBLINGUAL ONCE PRN (Reason: chest pain) RF: 0 fluticasone propionate [Flonase Allergy Relief] 50 mcg/actuation spray,suspen dee dee 2 spray INTRANASAL BID RF: 0 Victoza 2-Margarito 0.6 mg/0.1 mL (18 mg/3 mL) pen injector 1.8 mg SUBCUT Q24H RF: 0 polyethylene glycol 3350 [Miralax] 17 gram/dose powder 17 gm PO DAILY PRN (Reason: constipation) RF: 0 cyanocobalamin (vitamin B-12) 2,000 mcg tablet 2,000 mcg PO DAILY RF: 0 insulin aspart U-100 100 unit/mL solution See Rx Instructions SUBCUT TID RF: 0 aripiprazole [Abilify] 15 mg tablet 15 mg PO DAILY Qty: 30 RF: 1 lithium carbonate 300 mg tablet extended release 300 mg PO DAILY Qty: 30 RF: 0 levothyroxine 175 mcg Tablet 150 mcg PO DAILY RF: 0 metformin 1,000 mg Tablet 1,000 mg PO BID RF: 0 sodium chloride [Saline Nasal] 0.65 % Aerosol,[place] 1 spray INTRANASAL DAILY PRN (Reason: Nasal Congestion) RF: 0 cetirizine [Zyrtec] 10 mg Tablet 10 mg PO DAILY RF: 0 Levemir U-100 Insulin 100 unit/mL Solution 76 unit SUBCUT BEDTIME RF: 0 meclizine 25 mg tablet 25 mg PO QID PRN (Reason: dizziness) Qty: 20 RF: 0 Zofran 4 mg Tablet 4 mg PO Q6H PRN (Reason: Nausea) RF: 0 venlafaxine 150 mg Capsule,Extended Release 24hr See Rx Instructions .ROUTE .COMPLEX RF: 0 clopidogrel 75 mg Tablet 75 mg PO DAILY RF: 0 aspirin 81 mg Tablet,Delayed Release (Dr/Ec) 81 mg PO DAILY RF: 0 Tylenol Extra Strength 500 mg Tablet 1,000 mg PO Q6H PRN (Reason: Pain) RF: 0 Refresh Tears 0.5 % Drops See Rx Instructions .ROUTE .COMPLEX RF: 0 zolpidem 10 mg Tablet 10 mg PO BEDTIME RF: 0 ProAir HFA 90 mcg/actuation Hfa Aerosol Inhaler 2 puff INHALATION QID PRN (Reason: Shortness Of Breath) RF: 0 rosuvastatin 20 mg Tablet 20 mg PO DAILY RF: 0 memantine 10 mg Tablet 10 mg PO DAILY RF: 0 tizanidine 4 mg Capsule 4 mg PO TID PRN (Reason: Spasms) RF: 0 Mucinex 600 mg Tablet Extended Release 12hr 600 mg PO BID PRN (Reason: Congestion) RF: 0 nortriptyline 25 mg capsule 50 mg PO BEDTIME RF: 0 Valium 2 mg tablet 2 mg PO BID PRN (Reason: UNKNOWN) RF: 0 Discharge Orders: Discharge Order (Routine); Ordered 07/07/19 Ordered By: Arun Hernandez Referrals: Alberto Ordonez MD [Primary Care Provider] - Discharge Diet: Advance as tolerated Discharge Activity: Resume usual activity Patient Instructions: Chest Pain (ED) Coding Level of Care Code ED Power Station Operator for Chinog Fwd Exam Comprehensive
[2019-07-07 15:54] VITALS: O2SAT 98
[2019-07-07 16:05] LABS: Basophils % 0.3 %; Eosinophils # 0.4 10^3/uL (0.0-0.8); Eosinophils % 3.5 %; Hematocrit 38.8 % (37.0-47.0); Hemoglobin 11.8 g/dL (11.5-15.3); Lymphocytes # 2.4 10^3/uL (0.8-4.8); Lymphocytes % 20.3 %; Mean Corpuscular HGB Conc 30.4 g/dL (30.0-36.0); Mean Corpuscular Hemoglobin 26.9 pg (28.0-34.0); Mean Corpuscular Volume 88.6 fL (81-99); Mean Platelet Volume 10.3 fL (7.4-10.4); Monocytes # 0.8 10^3/uL (0.2-0.9); Monocytes % 7.1 %; Neutrophils # 7.9 10^3/uL (1.8-7.7); Neutrophils % 68.1 %; Nucleated Red Blood Cells % 0 %; Platelet Count 291 10^3/cmm (130-400); Red Blood Count 4.38 10^6/uL (4.1-5.3); Red Cell Distribution Width 14.4 % (12.1-15.1); White Blood Count 11.6 10^3/uL (4.0-10.0)
[2019-07-07] MEDS: lidocaine 2% viscous 15 ML, aluminum-mag hydrox-simethicon 30 ML, sucralfate oral liq 1 GM PO (16:09)
[2019-07-07 16:30] LABS: Troponin(5th) Baseline 6 ng/mL (0-10)
[2019-07-07 16:37] LABS: Alanine Aminotransferase 36 U/L (0-33); Albumin Level 3.8 g/dL (3.5-5.2); Alkaline Phosphatase 86 IU/L (35-105); Anion Gap 17.4 (5-19); Aspartate Amino Transferase 21 U/L (0-32); Blood Urea Nitrogen 9 mg/dL (6-20); Calcium 9.2 mg/dL (8.5-10.5); Carbon Dioxide 24 mmol/L (22-29); Chloride 98 mmol/L (98-107); Globulin 3.3 g/dL (1.3-4.6); Glomerular Filtration Rate 75.3 mL/min (90-130); Glucose 306 mg/dL (65-115); NT Pro B Type Natriuretic Pept 16 pg/mL (0-125); Osmolality Calculated 290 mOsm/kg (285-295); Potassium 3.4 mmol/L (3.5-5.1); Sodium 136 mmol/L (136-145); Total Bilirubin 0.3 mg/dL (0.15-1.2); Total Protein 7.1 g/dL (6.6-8.7)
[2019-07-07 16:44] LABS: D Dimer 0.27 ug/mIFEU (0-0.59)
[2019-07-07] MEDS: ondansetron 2 mg/ML SDV 2 mL 4 MG IVP (16:53)
[2019-07-07] MEDS: morphine 4 mg/mL SDV 1 mL IVP (16:53)
--- NOTE | 2019-07-07 17:24 | PC.NURSE ---
EKG performed and shown to ED physician.
--- NOTE | 2019-07-07 17:44 | ECG_ITS ---
Measurements Intervals [place] Rate: 95 P: 54 NM: 148 QRS: 10 QRSD: 89 T: 69 QT: 389 QTc: 491 SINUS RHYTHM INTERPRETATION BASED ON A DEFAULT AGE OF 40 YEARS Compared to ECG 04/01/2019 12:43:23 T-wave abnormality no longer present Electronically Signed On 07-07-2019 20:19:59 CDT by Jose Alejandro Jeffrey M.D. [id number]
[2019-07-07 18:05] LABS: Troponin 5 2HR Delta 0 ABS# (0-10)
[2019-07-07 18:41] VITALS: BP 132/79; PULSE 84; RESP 17; O2SAT 97
== END 2019-07-07 18:42 | disposition home or self-care (01) ==
PROVIDERS: Family Medicine; Physician Assistant; Emergency Provider Emergency Medicine; Family Provider Family Medicine; PCP Family Medicine
DX: R07.9 Chest pain, unspecified (principal); Z87.891 Personal history of nicotine dependence
CPT/HCPCS: 12345; 36415; 71045; 80053; 83880; 84484; 85025; 85378; 93005; 96374; 96375; 99283; 99284; J2270; J2405

== ENCOUNTER 2019-07-09 14:46 | Emergency (ER) | payer MEDICARE, MEDICAID, SELFPAY ==
[2019-07-09 14:47] VITALS: BMI 32.5
--- NOTE | 2019-07-09 14:48 | ED_ITS ---
Entered by Nancy Rojas, acting as scribe for Carmel Freeman Earl HPI - Chest Pain General: Chief Complaint: Chest Pain Stated Complaint: CHEST PAIN Time Seen by Provider: 07/09/19 14:47 Source: patient, EMS, RN notes reviewed and old records reviewed Mode of arrival: EMS Limitations: no limitations History of Present Illness: HPI narrative: 54 yo female presents to ED with complaints of chest pain and nausea. She said the pain is constant with sharper pains intermittently. She said it began about 1400 today. She said she was laying down watching soap operas when it began. She said if she lays completely still she will have minimal pain. She denies radiation of pain but she did break out in a sweat. She said she has had bad nausea. She quit smoking 2 years ago. She said her dad of a massive PA. pain/pressure central chest, nausea, Nitro at work with no relief, mild upper/lower GI bleed, diabetic well controlled, MD complaint: chest pain and chest discomfort Pertinent past history: coronary artery disease and other (CHF) Onset (ago): hour(s) (1) Timing of current episode: constant Prior episodes: Yes Onset: during rest Pain location: substernal Pain radiation: none Severity: moderate Quality: tightness and sharp Relieving factors: nothing and remaining still Exacerbating factors: exertion Context: other (none) Associated symptoms: Reports nausea; Deny diaphoresis, dyspnea, fever(s), palpitations or syncope Risk Factors: Coronary artery disease risk factors: diabetes and smoking history (quit 2 years ago) Thoracic aortic dissection risk factors: none Review of Systems General: Reports: other (negative unless marked) Const: Denies: fever, chills, body aches, fatigue, malaise or diaphoresis Card: Denies: chest pain, palpitations, irregular heart rhythm, syncope, pre- syncope, shortness of breath on exertion or shortness of breath when lying down Resp: Denies: shortness of breath, productive cough, non-productive cough, wheezing, coughing up blood or chest congestion GI: Reports: nausea : Denies: flank pain, painful urination, urinary frequency, urinary urgency, decreased urine ouput, urinary incontinence or blood in urine Musc: Denies: neck pain, back pain, extremity pain, extremity swelling, joint pain, joint swelling, joint warmth or joint stiffness Skin/Breast: Denies: rash, skin tenderness or yellow skin Neuro: Denies: headache, numbness in extremities, weakness in extremities, changes in sensation, lack of coordination, difficulty walking, dizziness, vertigo or confusion [place]/Lymph: Denies: easy bruising, easy bleeding, petechiae or enlarged lymph nodes All/Imm: Denies: hives, throat swelling, tongue swelling, facial swelling or acute wheezing PFSH ED PFSH: Medical History Anxiety Bipolar disorder Borderline personality disorder CAD (coronary artery disease) Cardiomyopathy CHF (congestive heart failure) COPD (chronic obstructive pulmonary disease) Depression Diabetes Hyperglycemia Hyperlipidemia Hypokalemia Major depressive disorder, recurrent, severe with psychotic symptoms Myocardial infarction Post-traumatic stress disorder, chronic Psychosis Thyroid cancer Surgical History History of appendectomy History of bladder suspension procedure History of breast augmentation History of breast biopsy History of History of cholecystectomy History of coronary angioplasty History of hysterectomy History of thyroidectomy History of tonsillectomy Hx of breast reduction, elective Social History Smoking and tobacco status: former smoker History of recent travel: No Physical Exam Const: COMMON NORMALS: no apparent distress, oriented x3, no limitations, healthy appearing and well nourished EXAM LIMITATIONS: no altered mental status GENERAL APPEARANCE: cooperative, well kempt and well developed ORIENTATION/CONSCIOUSNESS: Yes awake Neck/C-Spine: COMMON NORMALS: full ROM, no lymphadenopathy, supple, no meningeal signs and no JVD GENERAL: Yes normal visual inspection and Yes trachea midline CERVICAL SPINE: Yes cervical ROM normal Chest: COMMONS NORMALS: inspection of chest normal and palpation of chest normal Resp: COMMON NORMALS: normal respiratory effort, no retractions, no use of accessory muscles and clear to auscultation bilaterally EFFORT & INSPECTION: Yes able to speak in complete sentences AUSCULTATION: clear to auscultation bilaterally Cardio: COMMON NORMALS: no JVD, regular rate, regular rhythm, S1 normal heart sound, S2 normal heart sound, no gallops, no clicks, no murmurs and no rub JUGULAR VENOUS DISTENTION: no JVD RATE: regular rate RHYTHM: regular rhythm HEART SOUNDS: S1 normal and S2 normal GI: COMMON NORMALS: soft to palpation, non-tender, no hepatosplenomegaly and no masses INSPECTION: Yes normal to inspection PALPATION: Yes soft and Yes no hepatosplenomegaly : COMMON NORMALS: Yes no CVA tenderness BLADDER/KIDNEY EXAM: Yes no CVA tenderness Back/Pelvis: COMMON NORMALS: no CVA tenderness, thoracic and lumbar spine normal to inspection, no thoracic nor lumbar tenderness and thoraco-lumbar ROM normal Extremity: COMMON NORMALS: normal to inspection, full ROM, normal capillary refill, no joint enlargement, no clubbing, cyanosis or edema and no calf tenderness Neuro: COMMON NORMALS: oriented x3, CN's II-XII intact bilaterally, moves all extremities, no focal motor deficits and no sensory deficits noted MENINGEAL SIGNS: Yes no meningeal signs Psych: APPEARANCE: Yes well kempt Skin: COMMON NORMALS: no rashes or lesions noted, skin turgor normal, no jaundice, no petechiae and no mottling GENERAL SKIN EXAM: no rashes or lesions noted and turgor normal Course ED course: 1627 -I discussed with the patient her risks of a possible heart problem. Her heart score is a 4. The patient is refusing at this time. She wants to go back home and have an outpatient stress test. I think she is concerned about the pandemic of COVID-19. She understands the risks of leaving without a complete work-up for her heart including ultimately or severe permanent disability but she still refuses. Per complete chart review the patient had 1 LAD stent placed in September 2015 on the third and then was taken back to the [facility] on the of the same month and had an ostial lesion angioplasty. In August 2016 she had a heart cath which showed a widely patent stent and a stepup deformity but no evidence of any further coronary artery disease. On December 13, 2017 she had a normal stress test. I believe her risk to be low but nonetheless I have still recommended and offered her to stay but she is refusing. After much encouragement she does agree to stay for her second EKG and troponin here per the hospital protocol. Vital Signs: Vital signs: Vital Signs Temperature 97.9 F 07/09/19 14:53 Pulse Rate 85 07/09/19 16:48 Respiratory Rate 19 H 07/09/19 16:48 Blood Pressure 126/49 07/09/19 16:48 Pulse Oximetry 94 07/09/19 15:53 MDM - Chest Pain MDM Narrative: Medical decision making narrative: Discharge -I have again recommended and offered to put the patient in the hospital but she declines. She wants to go home. Upon further history is found that she has been sent here by their care facility she states that because she likes to take [id number] medications for pain. She denies any ingestions of anything to me. She does not appear to be in any type of toxidrome. I will go and discharge her home at her request. The patient has been warned about a possible heart problem but despite all this she declines any further testing and would like to be discharged. Lab Data: Labs: Lab Results 07/09/19 07/09/19 07/09/19 Range/Units 15:00 15:00 15:00 WBC 10.1 H (4.0-10.0) 10^3/ uL RBC 4.26 (4.1-5.3) 10^6/u L Hgb 11.3 L (11.5-15.3) g/dL Hct 37.6 (37.0-47.0) % MCV 88.3 (81-99) fL MCH 26.5 L (28.0-34.0) pg MCHC 30.1 (30.0-36.0) g/dL RDW 14.5 (12.1-15.1) % Plt Count 319 (130-400) 10^3/c mm MPV 10.1 (7.4-10.4) fL Neut % (Auto) 66.5 % Lymph % (Auto) 21.2 % [place] % (Auto) 7.0 % Eos % (Auto) 4.5 % Baso % (Auto) 0.2 % Neut # (Auto) 6.7 (1.8-7.7) 10^3/u L Lymph # (Auto) 2.2 (0.8-4.8) 10^3/u L [place] # (Auto) 0.7 (0.2-0.9) 10^3/u L Eos # (Auto) 0.5 (0.0-0.8) 10^3/u L Baso # (Auto) 0.0 (0.0-0.1) 10^3/u L Nucleated RBC % (a uto) 0 % Nucleated RBCs # 0.0 /100WBC APTT 26.1 (23.9-36.7) SECO NDS Sodium 139 (136-145) mmol/L Potassium 3.3 L (3.5-5.1) mmol/L Chloride 98 (98-107) mmol/L Carbon Dioxide 28 (22-29) mmol/L Anion Gap 16.3 (5-19) BUN 7 (6-20) mg/dL Creatinine 0.8 (0.5-0.9) mg/dL GFR Calculation 75.3 L (90-130) mL/min Glucose 365 H (65-115) mg/dL Calculated Osmolal ity 299 H (285-295) mOsm/k g Calcium 9.1 (8.5-10.5) mg/dL Total Bilirubin 0.2 (0.15-1.2) mg/dL AST 23 (0-32) U/L ALT 33 (0-33) U/L Alkaline Phosphata se 91 (35-105) IU/L Creatine Kinase 46 (26-192) U/L Troponin T Baselin e (0-10) ng/mL Troponin T 120 Min [place] (0-10) ng/mL NT-Pro-B Natriuret Pep 12 (0-125) pg/mL Total Protein 7.2 (6.6-8.7) g/dL Albumin 4.2 (3.5-5.2) g/dL Globulin 3.0 (1.3-4.6) g/dL Lipase 10 L (13-60) U/L 07/09/19 07/09/19 Range/Units 15:00 17:01 WBC (4.0-10.0) 10^3/ uL RBC (4.1-5.3) 10^6/u L Hgb (11.5-15.3) g/dL Hct (37.0-47.0) % MCV (81-99) fL MCH (28.0-34.0) pg MCHC (30.0-36.0) g/dL RDW (12.1-15.1) % Plt Count (130-400) 10^3/c mm MPV (7.4-10.4) fL Neut % (Auto) % Lymph % (Auto) % [place] % (Auto) % Eos % (Auto) % Baso % (Auto) % Neut # (Auto) (1.8-7.7) 10^3/u L Lymph # (Auto) (0.8-4.8) 10^3/u L [place] # (Auto) (0.2-0.9) 10^3/u L Eos # (Auto) (0.0-0.8) 10^3/u L Baso # (Auto) (0.0-0.1) 10^3/u L Nucleated RBC % (a uto) % Nucleated RBCs # /100WBC APTT (23.9-36.7) SECO NDS Sodium (136-145) mmol/L Potassium (3.5-5.1) mmol/L Chloride (98-107) mmol/L Carbon Dioxide (22-29) mmol/L Anion Gap (5-19) BUN (6-20) mg/dL Creatinine (0.5-0.9) mg/dL GFR Calculation (90-130) mL/min Glucose (65-115) mg/dL Calculated Osmolal ity (285-295) mOsm/k g Calcium (8.5-10.5) mg/dL Total Bilirubin (0.15-1.2) mg/dL AST (0-32) U/L ALT (0-33) U/L Alkaline Phosphata se (35-105) IU/L Creatine Kinase (26-192) U/L Troponin T Baselin e 6 (0-10) ng/mL Troponin T 120 Min [place] 6.00 (0-10) ng/mL NT-Pro-B Natriuret Pep (0-125) pg/mL Total Protein (6.6-8.7) g/dL Albumin (3.5-5.2) g/dL Globulin (1.3-4.6) g/dL Lipase (13-60) U/L Imaging Data^: CXR: Radiologist's impression: [address] [address] XRay Report Signed Patient: Bella Chandler #: [id number] : 1965Acct#:[id number] Age/Sex: 54 / FADM Date: 07/09/19 Loc: ERRoom/Bed: Attending Dr: Ordering Provider/Ordering MD: Carmel Freeman DO Date of Service: 07/09/19 Procedure(s): XR chest 1V portable [id number] Accession Number(s): [id number] Report Number: [id number] WS: [id number] PORTABLE CHEST HISTORY: CHEST PAIN COMPARISON: 07/07/2019 Slight elevation RIGHT hemidiaphragm. Otherwise lungs are clear. No pleural effusion or pneumothorax. Cardiac size: Normal. Mediastinum/Aorta: Normal mediastinum. No osseous abnormality seen. XR/XR chest 1V portable [id number] IMPRESSION: Unremarkable portable chest. Dictated By:Leonor Godinez DO Signed By:Leonor Godinezigned Date/Time:07/09/19 EKG Data^: EKG 1: Attestation: I personally reviewed and interpreted this EKG as follows: EKG interpretation date: 07/09/19 EKG interpretation time: 15:05 Interpretation: Normal sinus rhythm at 88 beats a minute, no acute ST or T wave changes. Unchanged from previous. EKG 2: Attestation: I personally reviewed and interpreted this EKG as follows: EKG interpretation date: 07/09/19 EKG interpretation time: 16:40 Interpretation: Normal sinus rhythm at 88 beats a minute, no acute ST-T wave changes. Unchanged from previous. Discharge Plan Discharge Patient Disposition: Home, Self-Care Clinical Impression: Chest pain Qualifiers: Chest pain type: unspecified Qualified Code(s): R07.9 - Chest pain, unspecified Condition: Stable Prescriptions: No Action magnesium oxide 400 mg magnesium capsule 400 mg PO DAILY RF: 0 nitroglycerin 0.4 mg tablet, sublingual 0.4 mg SUBLINGUAL ONCE PRN (Reason: chest pain) RF: 0 fluticasone propionate [Flonase Allergy Relief] 50 mcg/actuation spray,suspension 2 spray INTRANASAL BID RF: 0 Victoza 2-Margarito 0.6 mg/0.1 mL (18 mg/3 mL) pen injector 1.8 mg SUBCUT DAILY RF: 0 polyethylene glycol 3350 [Miralax] 17 gram/dose powder 17 gm PO DAILY PRN (Reason: constipation) RF: 0 cyanocobalamin (vitamin B-12) 2,000 mcg tablet 2,000 mcg PO DAILY RF: 0 insulin aspart U-100 100 unit/mL solution See Rx Instructions SUBCUT TID RF: 0 aripiprazole [Abilify] 15 mg tablet 15 mg PO DAILY Qty: 30 RF: 1 lithium carbonate 300 mg tablet extended release 300 mg PO DAILY Qty: 30 RF: 0 amoxicillin 500 mg Capsule 1,000 mg PO BID RF: 0 atorvastatin 80 mg Tablet 80 mg PO DAILY RF: 0 nortriptyline 25 mg Capsule 25 mg PO BEDTIME RF: 0 citalopram 20 mg Tablet 20 mg PO DAILY RF: 0 trazodone 100 mg Tablet 200 mg PO BEDTIME RF: 0 pantoprazole 40 mg Tablet,Delayed Release (Dr/Ec) 40 mg PO BID RF: 0 ferrous sulfate 325 mg (65 mg iron) Tablet 325 mg PO EVERY OTHER DAY RF: 0 metoprolol succinate 50 mg Tablet Extended Release 24 Hr 50 mg PO DAILY RF: 0 levothyroxine 175 mcg Tablet 175 mcg PO DAILY RF: 0 metformin 1,000 mg Tablet 1,000 mg PO BID RF: 0 sodium chloride [Saline Nasal] 0.65 % Aerosol,[place] 1 spray INTRANASAL DAILY PRN (Reason: Nasal Congestion) RF: 0 cetirizine [Zyrtec] 10 mg Tablet 10 mg PO DAILY RF: 0 Levemir U-100 Insulin 100 unit/mL Solution 76 unit SUBCUT BEDTIME RF: 0 meclizine 25 mg tablet 25 mg PO QID PRN (Reason: dizziness) Qty: 20 RF: 0 diazepam [Valium] 2 mg tablet 2 mg PO BEDTIME PRN (Reason: UNKNOWN) RF: 0 Discharge Orders: Discharge Order (Routine); Ordered 07/09/19 Ordered By: Carmel Freeman Referrals: Alberto Ordonez MD [Primary Care Provider] - 1-3 days Discharge Diet: Advance as tolerated Discharge Activity: Increase activity as tolerated Patient Instructions: Chest Pain (ED) Activity Restrictions/Additional Instructions: Please return to the ER immediately for any of the signs or symptoms listed on your discharge instruction sheets, worsening/changing of your symptoms, you are not getting better as quickly as expected, or for ANY other cause or concerns. I have recommended and offered to put you in the hospital for further cardiac testing to rule out a heart problem but you have declined. Of course any heart problem can be life-threatening so if you change your mind, your chest pain returns, you develop shortness of breath, you for fever, you began to cough, you pass out or nearly pass out or you simply change your mind you are more than welcome to return to the ER for recheck and further evaluation and care. Coding Level of Care Code ED Material Spreader for Chg Fwd Exam Comprehensive The documentation recorded by the Bob foster Valerie R, accurately reflects the service I personally performed and the decisions made by me, Carmel Freeman Jul 09, 2019 14:46
--- NOTE | 2019-07-09 14:49 | ECG_ITS ---
Measurements Intervals [place] Rate: 85 P: 54 MA: 151 QRS: 9 QRSD: 87 T: 62 QT: 392 QTc: 467 SINUS RHYTHM NONSPECIFIC T-WAVE ABNORMALITY Compared to ECG 07/07/2019 17:24:39 T-wave abnormality now present Electronically Signed On 07-11-2019 9:44:55 CDT by Monik Khan M.D. [id number]
--- NOTE | 2019-07-09 14:49 | XR_ITS ---
WS: [id number] PORTABLE CHEST HISTORY: CHEST PAIN COMPARISON: 07/07/2019 Slight elevation RIGHT hemidiaphragm. Otherwise lungs are clear. No pleural effusion or pneumothorax. Cardiac size: Normal. Mediastinum/Aorta: Normal mediastinum. No osseous abnormality seen. XR/XR chest 1V portable [id number] IMPRESSION: Unremarkable portable chest.
[2019-07-09 14:53] VITALS: BP 92/73; PULSE 93; RESP 18; TEMP 36.6; O2SAT 96
[2019-07-09 15:08] VITALS: O2SAT 94
[2019-07-09 15:08] LABS: Basophils % 0.2 %; Eosinophils # 0.5 10^3/uL (0.0-0.8); Eosinophils % 4.5 %; Hematocrit 37.6 % (37.0-47.0); Hemoglobin 11.3 g/dL (11.5-15.3); Lymphocytes # 2.2 10^3/uL (0.8-4.8); Lymphocytes % 21.2 %; Mean Corpuscular HGB Conc 30.1 g/dL (30.0-36.0); Mean Corpuscular Hemoglobin 26.5 pg (28.0-34.0); Mean Corpuscular Volume 88.3 fL (81-99); Mean Platelet Volume 10.1 fL (7.4-10.4); Monocytes # 0.7 10^3/uL (0.2-0.9); Neutrophils # 6.7 10^3/uL (1.8-7.7); Neutrophils % 66.5 %; Nucleated Red Blood Cells % 0 %; Platelet Count 319 10^3/cmm (130-400); Red Blood Count 4.26 10^6/uL (4.1-5.3); Red Cell Distribution Width 14.5 % (12.1-15.1); White Blood Count 10.1 10^3/uL (4.0-10.0)
[2019-07-09] MEDS: sodium chloride 0.9% 500 ML 999 ML IV (15:22)
[2019-07-09] MEDS: aspirin 81 mg Chew Tablet 324 MG PO (15:22)
[2019-07-09] MEDS: nitroglycerin 0.4 mg sublingual Tablet SUBLINGUAL (15:23)
[2019-07-09 15:26] LABS: Troponin(5th) Baseline 6 ng/mL (0-10)
[2019-07-09 15:31] LABS: Partial Thromboplastin Time 26.1 SECONDS (23.9-36.7)
[2019-07-09 15:36] LABS: Alanine Aminotransferase 33 U/L (0-33); Albumin Level 4.2 g/dL (3.5-5.2); Alkaline Phosphatase 91 IU/L (35-105); Anion Gap 16.3 (5-19); Aspartate Amino Transferase 23 U/L (0-32); Blood Urea Nitrogen 7 mg/dL (6-20); Calcium 9.1 mg/dL (8.5-10.5); Carbon Dioxide 28 mmol/L (22-29); Chloride 98 mmol/L (98-107); Creatine Phosphokinase 46 U/L (26-192); Glomerular Filtration Rate 75.3 mL/min (90-130); Glucose 365 mg/dL (65-115); Lipase 10 U/L (13-60); NT Pro B Type Natriuretic Pept 12 pg/mL (0-125); Osmolality Calculated 299 mOsm/kg (285-295); Potassium 3.3 mmol/L (3.5-5.1); Sodium 139 mmol/L (136-145); Total Bilirubin 0.2 mg/dL (0.15-1.2); Total Protein 7.2 g/dL (6.6-8.7)
[2019-07-09] MEDS: ketorolac 30 mg/mL INJ 10 MG IVP (15:49)
[2019-07-09 15:53] VITALS: BP 97/55; PULSE 88; RESP 13; O2SAT 94
[2019-07-09 16:48] VITALS: BP 126/49; PULSE 85; RESP 19
--- NOTE | 2019-07-09 16:49 | ECG_ITS ---
Measurements Intervals [place] Rate: 88 P: 45 WV: 142 QRS: 13 QRSD: 95 T: 68 QT: 396 QTc: 479 SINUS RHYTHM NONSPECIFIC T-WAVE ABNORMALITY Compared to ECG 07/07/2019 17:24:39 T-wave abnormality now present Electronically Signed On 07-11-2019 9:52:25 CDT by Monik Khan M.D. [id number]
[2019-07-09] MEDS: morphine 4 mg/mL SDV 1 mL IVP (17:28)
[2019-07-09 17:29] LABS: Troponin 5 2HR Delta 0 ABS# (0-10)
[2019-07-09 17:53] VITALS: BP 126/52; PULSE 88; RESP 15; O2SAT 94
== END 2019-07-09 17:53 | disposition home or self-care (01) ==
PROVIDERS: Emergency Provider Emergency Medicine; Family Provider Family Medicine; PCP Family Medicine
DX: R07.9 Chest pain, unspecified (principal); I25.10 Atherosclerotic heart disease of native coronary artery without angina pectoris; I25.2 Old myocardial infarction; I50.9 Heart failure, unspecified; J44.9 Chronic obstructive pulmonary disease, unspecified; E11.9 Type 2 diabetes mellitus without complications; E78.5 Hyperlipidemia, unspecified; Z79.4 Long term (current) use of insulin; Z87.891 Personal history of nicotine dependence; Z95.5 Presence of coronary angioplasty implant and graft
CPT/HCPCS: 12345; 36415; 71045; 80053; 82550; 83690; 83880; 84484; 85025; 85730; 93005; 96360; 96374; 96375; 99283; 99284; J1885; J2270; J7040

== ENCOUNTER 2019-07-10 13:39 | Emergency (ER) | payer MEDICARE, MEDICAID, SELFPAY ==
[2019-07-10 13:41] VITALS: BP 113/75; PULSE 88; RESP 17; TEMP 36.8; O2SAT 96; BMI 32.5
--- NOTE | 2019-07-10 13:41 | ED_ITS ---
Entered by Mell Laws, acting as scribe for Javad Valle DO HPI - General Adult General: Chief complaint: Chest Pain Stated complaint: CHEST PAIN Time Seen by Provider: 07/10/19 13:43 History of Present Illness: HPI narrative: 54 yo male presents with chest pain. Pt states that she has had chest pain for a few days. Pt states that she was supposed to be admitted and didn't stay like she was supposed too. pt states that she had chest pain on Saturday, was seen here in the ED and then again yesterday. MD complaint: chest pain Onset (ago): day(s) Location: chest Severity: mild Quality: stabbing Pain Consistency: intermittent Relieving factors: none Exacerbating factors: none Associated symptoms: Reports chest pain; Deny dyspnea, malaise, nausea, rash or vomiting Review of Systems Const: Denies: fever, chills, body aches, change in appetite, fatigue or malaise ENMT: Denies: throat pain, ear pain, nasal discharge or nasal congestion Card: Reports: chest pain; Denies: edema, shortness of breath on exertion or shortness of breath when lying down Resp: Denies: shortness of breath, productive cough or non-productive cough GI: Denies: abdominal pain, nausea, vomiting, vomiting blood, coffee grounds in vomit, diarrhea, constipation, bloating, blood in stool or black tarry stool : Denies: flank pain, difficulty urinating, painful urination, urinary frequency or urinary urgency Skin/Breast: Denies: rash or itching PFSH ED PFSH: Medical History Anxiety Bipolar disorder Borderline personality disorder CAD (coronary artery disease) Cardiomyopathy CHF (congestive heart failure) COPD (chronic obstructive pulmonary disease) Depression Diabetes Hyperglycemia Hyperlipidemia Hypokalemia Major depressive disorder, recurrent, severe with psychotic symptoms Myocardial infarction Post-traumatic stress disorder, chronic Psychosis Thyroid cancer Surgical History History of appendectomy History of bladder suspension procedure History of breast augmentation History of breast biopsy History of History of cholecystectomy History of coronary angioplasty History of hysterectomy History of thyroidectomy History of tonsillectomy Hx of breast reduction, elective Social History Smoking and tobacco status: never smoked History of recent travel: No Physical Exam Const: COMMON NORMALS: no apparent distress GENERAL APPEARANCE: cooperative and comfortable ORIENTATION/CONSCIOUSNESS: Yes awake, Yes oriented to person, Yes oriented to place and Yes oriented to time HENMT: COMMON NORMALS: normocephalic, head/scalp atraumatic, hearing grossly normal bilaterally, external ears normal, EAC's normal, TM's normal bilaterally, nasal mucous membranes and turbinates normal, moist oral mucous membranes and oropharynx normal HEAD & SCALP: normocephalic and atraumatic NOSE: nasal mucous membranes and turbinates normal EXTERNAL EAR: Yes external ears normal EXTERNAL AUDITORY CANAL: EAC's normal TYMPANIC MEMBRANE: TM's normal bilaterally Eye: COMMON NORMALS: PERRL, EOMs intact bilaterally, conjunctivae normal and no scleral icterus CONJUNCTIVA: Yes conjunctivae normal PUPIL: Yes PERRL Neck/C-Spine: COMMON NORMALS: full ROM, no lymphadenopathy, supple and no JVD Lymph: LYMPHATIC: no lymphadenopathy noted and no lymphedema noted Resp: COMMON NORMALS: normal respiratory effort, no retractions, no use of accessory muscles and clear to auscultation bilaterally AUSCULTATION: clear to auscultation bilaterally Cardio: COMMON NORMALS: no JVD, regular rate, regular rhythm and no murmurs RATE: regular rate RHYTHM: regular rhythm GI: COMMON NORMALS: soft to palpation and no hepatosplenomegaly AUSCULTATION: Yes normoactive bowel sounds PALPATION: Yes soft, No tender, No guarding and Yes no hepatosplenomegaly Extremity: COMMON NORMALS: normal to inspection, normal capillary refill, no clubbing, cyanosis or edema, no calf tenderness and no pedal edema Neuro: SENSORIUM/ORIENTATION: Yes oriented to person, Yes oriented to place and Yes oriented to time Skin: COMMON NORMALS: no rashes or lesions noted GENERAL SKIN EXAM: no rashes or lesions noted Course Vital Signs: Vital signs: Vital Signs Temperature 98.2 F 07/10/19 13:41 Pulse Rate 90 07/10/19 17:34 Respiratory Rate 17 07/10/19 17:34 Blood Pressure 141/92 07/10/19 17:34 Pulse Oximetry 99 07/10/19 17:34 MDM - General Adult MDM Narrative: Medical decision making narrative: Troponin x2 is negative EKG does not show anything acute. We will go ahead and discharge patient home make arrangements for an outpatient stress test. In discussing this with her it sounds as if it is more GI related she is already on pantoprazole will add Carafate as needed for breakthrough symptoms Lab Data: Labs: Lab Results 07/10/19 07/10/19 07/10/19 Range/Units 14:18 14:18 14:18 WBC 11.5 H (4.0-10.0) 10^3/ uL RBC 4.71 (4.1-5.3) 10^6/u L Hgb 12.6 (11.5-15.3) g/dL Hct 42.0 (37.0-47.0) % MCV 89.2 (81-99) fL MCH 26.8 L (28.0-34.0) pg MCHC 30.0 (30.0-36.0) g/dL RDW 14.4 (12.1-15.1) % Plt Count 352 (130-400) 10^3/c mm MPV 10.0 (7.4-10.4) fL Neut % (Auto) 65.3 % Lymph % (Auto) 22.3 % Sw[place] % (Auto) 6.4 % Eos % (Auto) 5.0 % Baso % (Auto) 0.3 % Neut # (Auto) 7.5 (1.8-7.7) 10^3/u L Lymph # (Auto) 2.6 (0.8-4.8) 10^3/u L Swisher # (Auto) 0.7 (0.2-0.9) 10^3/u L Eos # (Auto) 0.6 (0.0-0.8) 10^3/u L Baso # (Auto) 0.0 (0.0-0.1) 10^3/u L Nucleated RBC % (a uto) 0 % Nucleated RBCs # 0.0 /100WBC Sodium 141 (136-145) mmol/L Potassium 3.6 (3.5-5.1) mmol/L Chloride 98 (98-107) mmol/L Carbon Dioxide 31 H (22-29) mmol/L Anion Gap 15.6 (5-19) BUN 9 (6-20) mg/dL Creatinine 0.8 (0.5-0.9) mg/dL GFR Calculation 75.3 L (90-130) mL/min Glucose 215 H (65-115) mg/dL Calculated Osmolal ity 294 (285-295) mOsm/k g Calcium 9.4 (8.5-10.5) mg/dL Troponin T Baselin e 6 (0-10) ng/mL Troponin T 120 Min [place] (0-10) ng/mL Delta Troponin T (0-10) ABS# 07/10/19 Range/Units 16:21 WBC (4.0-10.0) 10^3/ uL RBC (4.1-5.3) 10^6/u L Hgb (11.5-15.3) g/dL Hct (37.0-47.0) % MCV (81-99) fL MCH (28.0-34.0) pg MCHC (30.0-36.0) g/dL RDW (12.1-15.1) % Plt Count (130-400) 10^3/c mm MPV (7.4-10.4) fL Neut % (Auto) % Lymph % (Auto) % [place] % (Auto) % Eos % (Auto) % Baso % (Auto) % Neut # (Auto) (1.8-7.7) 10^3/u L Lymph # (Auto) (0.8-4.8) 10^3/u L Swisher # (Auto) (0.2-0.9) 10^3/u L Eos # (Auto) (0.0-0.8) 10^3/u L Baso # (Auto) (0.0-0.1) 10^3/u L Nucleated RBC % (a uto) % Nucleated RBCs # /100WBC Sodium (136-145) mmol/L Potassium (3.5-5.1) mmol/L Chloride (98-107) mmol/L Carbon Dioxide (22-29) mmol/L Anion Gap (5-19) BUN (6-20) mg/dL Creatinine (0.5-0.9) mg/dL GFR Calculation (90-130) mL/min Glucose (65-115) mg/dL Calculated Osmolal ity (285-295) mOsm/k g Calcium (8.5-10.5) mg/dL Troponin T Baselin e (0-10) ng/mL Troponin T 120 Min [place] 6.15 (0-10) ng/mL Delta Troponin T 0.15 (0-10) ABS# Discharge Plan Discharge Patient Disposition: Home, Self-Care Clinical Impression: Atypical chest pain Condition: Stable Prescriptions: New Carafate 1 gram tablet 1 gm PO Q6H PRN (Reason: dyspepsia) 28 Days Qty: 112 RF: 0 No Action magnesium oxide 400 mg magnesium capsule 400 mg PO DAILY RF: 0 nitroglycerin 0.4 mg tablet, sublingual 0.4 mg SUBLINGUAL ONCE PRN (Reason: chest pain) RF: 0 fluticasone propionate [Flonase Allergy Relief] 50 mcg/actuation spray,suspension 2 spray INTRANASAL BID RF: 0 Victoza 2-Margarito 0.6 mg/0.1 mL (18 mg/3 mL) pen injector 1.8 mg SUBCUT DAILY RF: 0 polyethylene glycol 3350 [Miralax] 17 gram/dose powder 17 gm PO DAILY PRN (Reason: constipation) RF: 0 cyanocobalamin (vitamin B-12) 2,000 mcg tablet 2,000 mcg PO DAILY RF: 0 insulin aspart U-100 100 unit/mL solution See Rx Instructions SUBCUT TID RF: 0 aripiprazole [Abilify] 15 mg tablet 15 mg PO DAILY Qty: 30 RF: 1 lithium carbonate 300 mg tablet extended release 300 mg PO DAILY Qty: 30 RF: 0 amoxicillin 500 mg Capsule 1,000 mg PO BID RF: 0 atorvastatin 80 mg Tablet 80 mg PO DAILY RF: 0 nortriptyline 25 mg Capsule 25 mg PO BEDTIME RF: 0 citalopram 20 mg Tablet 20 mg PO DAILY RF: 0 trazodone 100 mg Tablet 200 mg PO BEDTIME RF: 0 pantoprazole 40 mg Tablet,Delayed Release (Dr/Ec) 40 mg PO BID RF: 0 ferrous sulfate 325 mg (65 mg iron) Tablet 325 mg PO EVERY OTHER DAY RF: 0 metoprolol succinate 50 mg Tablet Extended Release 24 Hr 50 mg PO DAILY RF: 0 levothyroxine 175 mcg Tablet 175 mcg PO DAILY RF: 0 metformin 1,000 mg Tablet 1,000 mg PO BID RF: 0 sodium chloride [Saline Nasal] 0.65 % Aerosol,[place] 1 spray INTRANASAL DAILY PRN (Reason: Nasal Congestion) RF: 0 cetirizine [Zyrtec] 10 mg Tablet 10 mg PO DAILY RF: 0 Levemir U-100 Insulin 100 unit/mL Solution 76 unit SUBCUT BEDTIME RF: 0 meclizine 25 mg tablet 25 mg PO QID PRN (Reason: dizziness) Qty: 20 RF: 0 diazepam [Valium] 2 mg tablet 2 mg PO BEDTIME PRN (Reason: UNKNOWN) RF: 0 Discharge Orders: Discharge Order (Routine); Ordered 07/10/19 Ordered By: Javad Valle Referrals: Alberto rOdonez MD [Primary Care Provider] - Activity Restrictions/Additional Instructions: Case management will call with an appointment for a stress test Discharge Date/Time: 07/10/19 17:35 Coding Level of Care Code ED Jewel Hole Finish Opener for Chg Fwd Exam Comprehensive The documentation recorded by the Veto foster Kialy, accurately reflects the service I personally performed and the decisions made by Leonard royal Curtis L, DO Jul 10, 2019 13:39
--- NOTE | 2019-07-10 13:55 | ECG_ITS ---
Measurements Intervals [place] Rate: 89 P: 60 NV: 146 QRS: 18 QRSD: 86 T: 68 QT: 385 QTc: 470 SINUS RHYTHM LOW QRS VOLTAGE IN PRECORDIAL LEADS [QRS DEFLECTION < 1.0 mV IN CHEST LEADS] Compared to ECG 07/07/2019 17:24:39 Low QRS voltage now present Electronically Signed On 07-11-2019 9:39:00 CDT by Monik Khan M.D. [id number] f
--- NOTE | 2019-07-10 13:55 | XR_ITS ---
WS: [id number] Portable AP upright chest, 07/10/2019 Clinical Data: dyspnea/cough Comparison: Portable chest, 07/09/2019 Findings: No nodules, masses or effusions are seen. The heart is normal. The pulmonary vascularity is not increased. No pneumonia or pneumothorax is seen. Monitor leads on the chest wall. XR/XR chest 1V portable [id number] Impression: Negative chest.
[2019-07-10 14:02] VITALS: O2SAT 96
[2019-07-10 14:25] LABS: Basophils % 0.3 %; Eosinophils # 0.6 10^3/uL (0.0-0.8); Hemoglobin 12.6 g/dL (11.5-15.3); Lymphocytes # 2.6 10^3/uL (0.8-4.8); Lymphocytes % 22.3 %; Mean Corpuscular Hemoglobin 26.8 pg (28.0-34.0); Mean Corpuscular Volume 89.2 fL (81-99); Monocytes # 0.7 10^3/uL (0.2-0.9); Monocytes % 6.4 %; Neutrophils # 7.5 10^3/uL (1.8-7.7); Neutrophils % 65.3 %; Nucleated Red Blood Cells % 0 %; Platelet Count 352 10^3/cmm (130-400); Red Blood Count 4.71 10^6/uL (4.1-5.3); Red Cell Distribution Width 14.4 % (12.1-15.1); White Blood Count 11.5 10^3/uL (4.0-10.0)
[2019-07-10 14:45] LABS: Anion Gap 15.6 (5-19); Blood Urea Nitrogen 9 mg/dL (6-20); Calcium 9.4 mg/dL (8.5-10.5); Carbon Dioxide 31 mmol/L (22-29); Chloride 98 mmol/L (98-107); Glomerular Filtration Rate 75.3 mL/min (90-130); Glucose 215 mg/dL (65-115); Osmolality Calculated 294 mOsm/kg (285-295); Potassium 3.6 mmol/L (3.5-5.1); Sodium 141 mmol/L (136-145)
[2019-07-10 14:46] LABS: Troponin(5th) Baseline 6 ng/mL (0-10)
--- NOTE | 2019-07-10 15:55 | ECG_ITS ---
Measurements Intervals [place] Rate: 88 P: 52 OH: 157 QRS: 7 QRSD: 88 T: 57 QT: 408 QTc: 494 SINUS RHYTHM Compared to ECG 07/07/2019 17:24:39 No significant changes Electronically Signed On 07-11-2019 9:47:45 CDT by Monik Khan M.D. [id number] f
[2019-07-10 16:12] VITALS: BP 103/76; PULSE 87; O2SAT 97
[2019-07-10] MEDS: orphenadrine 30 mg/mL Inj 2 mL 60 MG IM (16:41)
[2019-07-10 16:59] LABS: Troponin 5 2HR 6.15 ng/mL (0-10); Troponin 5 2HR Delta 0.15 ABS# (0-10)
[2019-07-10 17:34] VITALS: BP 141/92; PULSE 90; RESP 17; O2SAT 99
--- NOTE | 2019-07-13 15:42 | DCPLANNER ---
manager line had message to schedule an outpatient stress test for patient. manager line called to confirm to order stress test, and that primary care physician is Dr. Ordonez. manager line was told yes to order the test and that results needed to be sent to Dr. Ordonez. manager line faxed order to centralized scheduling, will call for appointment information.
--- NOTE | 2019-07-24 11:23 | DCPLANNER ---
Patient has a follow up appointment scheduled for Thursday, July 18, 2019 at 11:30. Centralized scheduling will call patient with appointment information.
--- NOTE | 2019-09-01 15:15 | DCPLANNER ---
Patient did attend outpatient stress test scheduled for 07.28.19.
== END 2019-07-10 17:35 | disposition home or self-care (01) ==
PROVIDERS: Emergency Provider Family Medicine; Family Provider Family Medicine; PCP Family Medicine
DX: R07.89 Other chest pain (principal); I25.10 Atherosclerotic heart disease of native coronary artery without angina pectoris; I25.2 Old myocardial infarction; I50.9 Heart failure, unspecified; J44.9 Chronic obstructive pulmonary disease, unspecified; E11.9 Type 2 diabetes mellitus without complications; E78.5 Hyperlipidemia, unspecified; Z79.4 Long term (current) use of insulin; Z79.51 Long term (current) use of inhaled steroids
CPT/HCPCS: 12345; 36415; 71045; 80048; 84484; 85025; 93005; 96372; 99283; 99284; J2360

== ENCOUNTER 2019-07-22 20:22 | Emergency (ER) | payer MEDICARE, MEDICAID, SELFPAY ==
[2019-07-22] VITALS (9 sets, daily range): BP systolic 99–138; BP diastolic 68–89; PULSE 88–98; RESP 14–18; TEMP 36.9; O2SAT 92–96; BMI 32.5
--- NOTE | 2019-07-22 20:27 | PC.NURSE ---
patient states she was just sitting when she started having sharp chest pain that radiated down her left arm.
--- NOTE | 2019-07-22 20:28 | XR_ITS ---
WS: [id number] CHEST XRAY TECHNIQUE: Portable chest. CLINICAL INFORMATION: cough COMPARISON: July 10, 2019 FINDINGS: Surgical clips base of the neck Heart: Normal cardiac silhouette. Lungs: Lungs are clear. No consolidation or pleural effusion. Bones: Normal visualized bony structures. XR/XR chest 1V portable [id number] IMPRESSION: No acute chest findings. No acute pulmonary infiltrates.
--- NOTE | 2019-07-22 20:29 | ECG_ITS ---
Measurements Intervals [place] Rate: 95 P: 51 NH: 157 QRS: 15 QRSD: 83 T: 60 QT: 395 QTc: 498 SINUS RHYTHM Compared to ECG 07/10/2019 16:06:21 No significant changes Electronically Signed On 07-23-2019 15:30:14 CDT by Chuck Gaming M.D. [id number]
[2019-07-22] MEDS: nitroglycerin 1 gm/inch oint Pkt 1 INCH TOPICAL (20:39)
[2019-07-22] MEDS: ondansetron 2 mg/ML SDV 2 mL 4 MG IVP ×2 (20:39→22:00)
[2019-07-22] MEDS: sodium chloride 0.9% 1,000 ML 100 ML IV (20:39)
--- NOTE | 2019-07-22 20:57 | PC.NURSE ---
lab in room
--- NOTE | 2019-07-22 20:58 | PC.NURSE ---
xray in room
--- NOTE | 2019-07-22 20:59 | W.ED.CHESTPA ---
HPI - Chest Pain General: Chief Complaint: Chest Pain Stated Complaint: CP Time Seen by Provider: 07/22/19 20:25 History of Present Illness: HPI narrative: Bella is a 54-year-old female who comes in complaining of chest pain. She describes the pain as a mild pressure worth severe sharp pains that are intermittent. She has mild nausea and occasional radiation down her left arm with a sharp pains. He had partial relief with nitroglycerin but when the nitroglycerin wears off her pain returns. Patient states that she has been seen in the ER twice for this recently and also was recently diagnosed in the office with reflux disease. She is unaware of anything that makes her symptoms better or worse. She denies any other complaints or concerns at this time. Associated symptoms: Reports nausea; Deny abdominal pain, diaphoresis, dyspnea, fever(s), palpitations, syncope or vomiting Review of Systems General: Reports: other (negative unless marked) Const: Denies: fever, chills, body aches, fatigue, malaise or diaphoresis Eyes: Denies: change in vision or blurry vision ENMT: Denies: throat pain, painful swallowing, hoarseness, ear pain, ear discharge, Change in hearing or nasal discharge Card: Reports: chest pain; Denies: palpitations, irregular heart rhythm, syncope, pre-syncope, shortness of breath on exertion or shortness of breath when lying down Resp: Denies: shortness of breath, productive cough, non-productive cough, wheezing, coughing up blood or chest congestion GI: Reports: nausea; Denies: abdominal pain, vomiting, vomiting blood, coffee grounds in vomit, diarrhea, constipation, cramping, blood in stool or black tarry stool : Denies: flank pain, painful urination, urinary frequency, urinary urgency, decreased urine ouput, urinary incontinence or blood in urine Musc: Denies: neck pain, back pain, extremity pain, extremity swelling, joint pain, joint swelling, joint warmth or joint stiffness Skin/Breast: Denies: rash, skin tenderness or yellow skin Neuro: Denies: headache, numbness in extremities, weakness in extremities, changes in sensation, lack of coordination, difficulty walking, dizziness, vertigo or confusion Endo: Denies: excessive thirst, tired all the time, cold intolerance, excessive sweating, flushing or hot flashes [place] Antonio/Lymph: Denies: easy bruising, easy bleeding, petechiae or enlarged lymph nodes All/Imm: Denies: hives, throat swelling, tongue swelling, facial swelling or acute wheezing PFSH ED PFSH: Medical History Anxiety Bipolar disorder Borderline personality disorder CAD (coronary artery disease) Cardiomyopathy CHF (congestive heart failure) COPD (chronic obstructive pulmonary disease) Depression Diabetes Hyperglycemia Hyperlipidemia Hypokalemia Major depressive disorder, recurrent, severe with psychotic symptoms Myocardial infarction Post-traumatic stress disorder, chronic Psychosis Thyroid cancer Surgical History History of appendectomy History of bladder suspension procedure History of breast augmentation History of breast biopsy History of History of cholecystectomy History of coronary angioplasty History of hysterectomy History of thyroidectomy History of tonsillectomy Hx of breast reduction, elective Social History Smoking and tobacco status: former smoker History of recent travel: No Physical Exam Const: COMMON NORMALS: no apparent distress, oriented x3, no limitations, healthy appearing and well nourished EXAM LIMITATIONS: no altered mental status GENERAL APPEARANCE: cooperative, well kempt and well developed ORIENTATION/CONSCIOUSNESS: Yes awake HENMT: COMMON NORMALS: normocephalic, head/scalp atraumatic, hearing grossly normal bilaterally, external ears normal, EAC's normal, external nose normal and moist oral mucous membranes HEAD & SCALP: normal to inspection, normocephalic and atraumatic FACE & SINUS: normal facial exam and face symmetric NOSE: external nose normal and nares normal EXTERNAL EAR: Yes external ears normal EXTERNAL AUDITORY CANAL: EAC's normal MOUTH: oral and palatal mucosa normal and tongue normal Eye: COMMON NORMALS: PERRL, EOMs intact bilaterally, conjunctivae normal and no scleral icterus GENERAL EYE: normal appearance of both eyes and normal light reflex CONJUNCTIVA: Yes conjunctivae normal SCLERA: sclerae normal CORNEA: Yes corneas normal PUPIL: Yes PERRL DIRECT OPHTHALMOSCOPY: Yes normal light reflex Neck/C-Spine: COMMON NORMALS: full ROM, no lymphadenopathy, supple, no meningeal signs and no JVD GENERAL: Yes normal visual inspection and Yes trachea midline CERVICAL SPINE: Yes cervical ROM normal Chest: COMMONS NORMALS: inspection of chest normal and palpation of chest normal Resp: COMMON NORMALS: normal respiratory effort, no retractions, no use of accessory muscles and clear to auscultation bilaterally EFFORT & INSPECTION: Yes able to speak in complete sentences AUSCULTATION: clear to auscultation bilaterally Cardio: COMMON NORMALS: no JVD, regular rate, regular rhythm, S1 normal heart sound, S2 normal heart sound, no gallops, no clicks, no murmurs and no rub JUGULAR VENOUS DISTENTION: no JVD RATE: regular rate RHYTHM: regular rhythm HEART SOUNDS: S1 normal and S2 normal GI: COMMON NORMALS: soft to palpation, non-tender, no hepatosplenomegaly and no masses INSPECTION: Yes normal to inspection PALPATION: Yes soft and Yes no hepatosplenomegaly : COMMON NORMALS: Yes no CVA tenderness BLADDER/KIDNEY EXAM: Yes no CVA tenderness Back/Pelvis: COMMON NORMALS: no CVA tenderness, thoracic and lumbar spine normal to inspection, no thoracic nor lumbar tenderness and thoraco-lumbar ROM normal Extremity: COMMON NORMALS: normal to inspection, full ROM, normal capillary refill, no joint enlargement, no clubbing, cyanosis or edema and no calf tenderness Neuro: COMMON NORMALS: oriented x3, CN's II-XII intact bilaterally, moves all extremities, no focal motor deficits and no sensory deficits noted MENINGEAL SIGNS: Yes no meningeal signs Psych: COMMON NORMALS: mental status grossly normal, thought process normal, cooperative, affect normal, speech normal and activity/motor behavior normal APPEARANCE: Yes well kempt SPEECH: Yes normal speech THOUGHT PROCESS: normal thought process Skin: COMMON NORMALS: no rashes or lesions noted, skin turgor normal, no jaundice, no petechiae and no mottling GENERAL SKIN EXAM: no rashes or lesions noted and turgor normal Course Vital Signs: Vital signs: Vital Signs Temperature 98.4 F 07/22/19 20:25 Pulse Rate 90 07/23/19 00:04 Respiratory Rate 14 07/23/19 00:04 Blood Pressure 120/74 07/23/19 00:04 Pulse Oximetry 93 07/23/19 00:04 MDM - Chest Pain MDM Narrative: Medical decision making narrative: Bella is a 54-year-old female who comes in complaining of chest pain. Her pain is described as pressure at times but mostly a sharp pain. She has no associated diaphoresis, shortness of breath, worsening with exertion or pleuritic component. Patient's had 2 completely normal EKGs here and 2 troponins as low as possible. These all stay within the same range as her normal. Her heart score is 3. Due to the national COVID-19 pandemic our hospital is currently not doing inpatient stress test. The patient claims to have an outpatient stress test set up for next Saturday. I have offered and recommended to keep her here for further testing including another EKG and troponin for formal rule out possibly even a instrument technician consult but she declines. She states she is feeling better would like to go home. She was advised to take aspirin daily and to return if her symptoms return. Patient understands the seriousness of this and will agrees to do so if necessary. Patient had some intermittent hypoxemia and that is why the CT was performed despite a negative d-dimer. But again there is no evidence of pulmonary embolism. Patient has a normal physical exam and a normal chest x-ray with a negative CT. With his present dissection, pulmonary embolism and acute coronary syndrome has been ruled out. I see nothing to suggest Boerhaave syndrome any other acute intrathoracic pathology at this time. Lab Data: Attestation: I reviewed the patient's lab results. Labs: Lab Results 07/22/19 07/22/19 07/22/19 Range/Units 20:58 20:58 20:58 WBC 11.7 H (4.0-10.0) 10^3/ uL RBC 4.43 (4.1-5.3) 10^6/u L Hgb 11.7 (11.5-15.3) g/dL Hct 38.7 (37.0-47.0) % MCV 87.4 (81-99) fL MCH 26.4 L (28.0-34.0) pg MCHC 30.2 (30.0-36.0) g/dL RDW 14.6 (12.1-15.1) % Plt Count 311 (130-400) 10^3/c mm MPV 10.1 (7.4-10.4) fL Neut % (Auto) 57.6 % Lymph % (Auto) 24.9 % Colbert % (Auto) 7.9 % Eos % (Auto) 8.3 % Baso % (Auto) 0.7 % Neut # (Auto) 6.7 (1.8-7.7) 10^3/u L Lymph # (Auto) 2.9 (0.8-4.8) 10^3/u L Colbert # (Auto) 0.9 (0.2-0.9) 10^3/u L Eos # (Auto) 1.0 H (0.0-0.8) 10^3/u L Baso # (Auto) 0.1 (0.0-0.1) 10^3/u L Nucleated RBC % (a uto) 0 % Nucleated RBCs # 0.0 /100WBC PT 15.00 H (10.5-13.3) SECO NDS INR 1.14 (0.8-1.2) D-Dimer <= 0.27 (0-0.59) ug/mIFE U Sodium 139 (136-145) mmol/L Potassium 4.0 (3.5-5.1) mmol/L Chloride 100 (98-107) mmol/L Carbon Dioxide 25 (22-29) mmol/L Anion Gap 18.0 (5-19) BUN 9 (6-20) mg/dL Creatinine 0.8 (0.5-0.9) mg/dL GFR Calculation 75.3 L (90-130) mL/min Glucose 272 H (65-115) mg/dL Calculated Osmolal ity 294 (285-295) mOsm/k g Calcium 9.2 (8.5-10.5) mg/dL Magnesium 2.1 (1.7-2.3) mg/dL Total Bilirubin 0.3 (0.15-1.2) mg/dL AST 26 (0-32) U/L ALT 24 (0-33) U/L Alkaline Phosphata se 96 (35-105) IU/L Troponin T Baselin e (0-10) ng/mL Troponin T 120 Min [place] (0-10) ng/mL NT-Pro-B Natriuret Pep 5 (0-125) pg/mL Total Protein 7.0 (6.6-8.7) g/dL Albumin 4.0 (3.5-5.2) g/dL Globulin 3.0 (1.3-4.6) g/dL Lipase 19 (13-60) U/L Urine Color (Yellow) Urine Appearance (CLEAR) Urine pH (5-7) Ur Specific Gravit y (1.005-1.030) Urine Protein (Negative) Urine Glucose (UA) (Normal) Urine Ketones (Negative) Urine Blood (Negative) Urine Nitrate (Negative) Urine Bilirubin (NEGATIVE) Urine Urobilinogen (Negative) mg/dL Ur Leukocyte Lety ase (Negative) Urine RBC (0-2) /hpf Urine WBC (0-5) /hpf Ur Squamous Epith Cells (0-5) Ur Transition Epit h Cell /hpf Ur Renal Epithelia l Cell /hpf Urine Bacteria (NONE) Urine Opiates Scre en (Negative) ng/mL Ur Barbiturates Sc reen (Negative) ng/mL Ur Phencyclidine S crn (Negative) ng/mL Ur Amphetamines Sc reen (Negative) ng/mL U Benzodiazepines Scrn (Negative) ng/mL Urine Cocaine Scre en (Negative) ng/mL U Marijuana (THC) Screen (Negative) ng/mL Ethyl Alcohol < 10 (0-10) mg/dL 07/22/19 07/22/19 07/22/19 Range/Units 20:58 21:07 21:07 WBC (4.0-10.0) 10^3/ uL RBC (4.1-5.3) 10^6/u L Hgb (11.5-15.3) g/dL Hct (37.0-47.0) % MCV (81-99) fL MCH (28.0-34.0) pg MCHC (30.0-36.0) g/dL RDW (12.1-15.1) % Plt Count (130-400) 10^3/c mm MPV (7.4-10.4) fL Neut % (Auto) % Lymph % (Auto) % Colbert % (Auto) % Eos % (Auto) % Baso % (Auto) % Neut # (Auto) (1.8-7.7) 10^3/u L Lymph # (Auto) (0.8-4.8) 10^3/u L Colbert # (Auto) (0.2-0.9) 10^3/u L Eos # (Auto) (0.0-0.8) 10^3/u L Baso # (Auto) (0.0-0.1) 10^3/u L Nucleated RBC % (a uto) % Nucleated RBCs # /100WBC PT (10.5-13.3) SECO NDS INR (0.8-1.2) D-Dimer (0-0.59) ug/mIFE U Sodium (136-145) mmol/L Potassium (3.5-5.1) mmol/L Chloride (98-107) mmol/L Carbon Dioxide (22-29) mmol/L Anion Gap (5-19) BUN (6-20) mg/dL Creatinine (0.5-0.9) mg/dL GFR Calculation (90-130) mL/min Glucose (65-115) mg/dL Calculated Osmolal ity (285-295) mOsm/k g Calcium (8.5-10.5) mg/dL Magnesium (1.7-2.3) mg/dL Total Bilirubin (0.15-1.2) mg/dL AST (0-32) U/L ALT (0-33) U/L Alkaline Phosphata se (35-105) IU/L Troponin T Baselin e 6 (0-10) ng/mL Troponin T 120 Min [place] (0-10) ng/mL NT-Pro-B Natriuret Pep (0-125) pg/mL Total Protein (6.6-8.7) g/dL Albumin (3.5-5.2) g/dL Globulin (1.3-4.6) g/dL Lipase (13-60) U/L Urine Color Yellow (Yellow) Urine Appearance Clear (CLEAR) Urine pH 7 (5-7) Ur Specific Gravit y 1.005 (1.005-1.030) Urine Protein Neg (Negative) Urine Glucose (UA) 4+ H (Normal) Urine Ketones Negative (Negative) Urine Blood Neg (Negative) Urine Nitrate Negative (Negative) Urine Bilirubin Neg (NEGATIVE) Urine Urobilinogen Norm (Negative) mg/dL Ur Leukocyte Lety ase Negative (Negative) Urine RBC None (0-2) /hpf Urine WBC None (0-5) /hpf Ur Squamous Epith Cells 0-4 H (0-5) Ur Transition Epit h Cell None /hpf Ur Renal Epithelia l Cell None /hpf Urine Bacteria None (NONE) Urine Opiates Scre en Negative (Negative) ng/mL Ur Barbiturates Sc reen Negative (Negative) ng/mL Ur Phencyclidine S crn Negative (Negative) ng/mL Ur Amphetamines Sc reen Negative (Negative) ng/mL U Benzodiazepines Scrn Positive H (Negative) ng/mL Urine Cocaine Scre en Negative (Negative) ng/mL U Marijuana (THC) Screen Negative (Negative) ng/mL Ethyl Alcohol (0-10) mg/dL 07/22/19 Range/Units 22:24 WBC (4.0-10.0) 10^3/ uL RBC (4.1-5.3) 10^6/u L Hgb (11.5-15.3) g/dL Hct (37.0-47.0) % MCV (81-99) fL MCH (28.0-34.0) pg MCHC (30.0-36.0) g/dL RDW (12.1-15.1) % Plt Count (130-400) 10^3/c mm MPV (7.4-10.4) fL Neut % (Auto) % Lymph % (Auto) % Colbert % (Auto) % Eos % (Auto) % Baso % (Auto) % Neut # (Auto) (1.8-7.7) 10^3/u L Lymph # (Auto) (0.8-4.8) 10^3/u L Colbert # (Auto) (0.2-0.9) 10^3/u L Eos # (Auto) (0.0-0.8) 10^3/u L Baso # (Auto) (0.0-0.1) 10^3/u L Nucleated RBC % (a uto) % Nucleated RBCs # /100WBC PT (10.5-13.3) SECO NDS INR (0.8-1.2) D-Dimer (0-0.59) ug/mIFE U Sodium (136-145) mmol/L Potassium (3.5-5.1) mmol/L Chloride (98-107) mmol/L Carbon Dioxide (22-29) mmol/L Anion Gap (5-19) BUN (6-20) mg/dL Creatinine (0.5-0.9) mg/dL GFR Calculation (90-130) mL/min Glucose (65-115) mg/dL Calculated Osmolal ity (285-295) mOsm/k g Calcium (8.5-10.5) mg/dL Magnesium (1.7-2.3) mg/dL Total Bilirubin (0.15-1.2) mg/dL AST (0-32) U/L ALT (0-33) U/L Alkaline Phosphata se (35-105) IU/L Troponin T Baselin e (0-10) ng/mL Troponin T 120 Min [place] 6.08 (0-10) ng/mL NT-Pro-B Natriuret Pep (0-125) pg/mL Total Protein (6.6-8.7) g/dL Albumin (3.5-5.2) g/dL Globulin (1.3-4.6) g/dL Lipase (13-60) U/L Urine Color (Yellow) Urine Appearance (CLEAR) Urine pH (5-7) Ur Specific Gravit y (1.005-1.030) Urine Protein (Negative) Urine Glucose (UA) (Normal) Urine Ketones (Negative) Urine Blood (Negative) Urine Nitrate (Negative) Urine Bilirubin (NEGATIVE) Urine Urobilinogen (Negative) mg/dL Ur Leukocyte Lety ase (Negative) Urine RBC (0-2) /hpf Urine WBC (0-5) /hpf Ur Squamous Epith Cells (0-5) Ur Transition Epit h Cell /hpf Ur Renal Epithelia l Cell /hpf Urine Bacteria (NONE) Urine Opiates Scre en (Negative) ng/mL Ur Barbiturates Sc reen (Negative) ng/mL Ur Phencyclidine S crn (Negative) ng/mL Ur Amphetamines Sc reen (Negative) ng/mL U Benzodiazepines Scrn (Negative) ng/mL Urine Cocaine Scre en (Negative) ng/mL U Marijuana (THC) Screen (Negative) ng/mL Ethyl Alcohol (0-10) mg/dL Imaging Data^: CXR: My impression: No acute cardiopulmonary findings. CT Chest: Radiologist's impression: [address] [place] [address] CT Scan Report Signed Patient: Bella Chandler Unit #: [id number] : [id number] Age/Sex: 54 / F ADM Date: 07/22/19 Loc: ER Room/Bed: Attending Dr: Ordering Provider/Ordering MD: Carmel Freeman DO Date of Service: 07/22/19 Procedure(s): CT angio chest PE protcl [id number] Accession Number(s): [id number] Report Number: [id number] PROCEDURE INFORMATION: Exam: CT Angiography Chest With Contrast Exam date and time: 07/22/2019 10:14 PM Age: 54 years old Clinical indication: Other: Hypoxia; Chest pain; Prior surgery; Surgery date: 6+ months; Surgery type: Thyroid, stent; Patient HX: HX thyroid CA; Additional info: Cp, hypoxia TECHNIQUE: Imaging protocol: Computed tomographic angiography of the chest with intravenous contrast. 3D rendering: MIP and/or 3D reconstructed images were created by the technologist. Total DLP: 569.3 mGy-cm Radiation optimization: All CT scans at this facility use at least one of these dose optimization techniques: automated exposure control; mA and/or kV adjustment per patient size (includes targeted exams where dose is matched to clinical indication); or iterative reconstruction. Contrast material: OMNI 350; Contrast volume: 89 ml; Contrast route: 18G; COMPARISON: CT Chest/Abdomen/Pelvis wo IV 07/07/2017 4:04 PM FINDINGS: Pulmonary arteries: Normal. No pulmonary emboli. Aorta: Unremarkable. No aortic aneurysm. No aortic dissection. Lungs: Unremarkable. No consolidation. No masses. Pleural space: Unremarkable. No pneumothorax. No pleural effusion. Heart: Unremarkable. No cardiomegaly. No pericardial effusion. Adrenals: Stable 1.8 cm low-density nodule in the left adrenal gland. Lymph nodes: Unremarkable. No enlarged lymph nodes. Bones/joints: Unremarkable. No acute fracture. Soft tissues: Unremarkable. CT/CT angio chest PE protcl [id number] IMPRESSION: 1. No evidence for pulmonary embolus or other acute pathology. 2. Stable low-density nodule in the left adrenal gland, consistent with a benign adenoma. Radiation Dose CTDIVOL = (mGy): DLP = 569.3 (mGy-cm) Dictated By: Himanshu Blalard Signed By: Himanshu Ballard Signed Date/Time: 07/22/19 2350 DD/ 2349 EKG Data^: EKG 1: Attestation: I personally reviewed and interpreted this EKG as follows: EKG interpretation date: 07/22/19 EKG interpretation time: 20:39 Interpretation: Normal sinus rhythm at 95 beats a minute, no acute ST-T wave changes. EKG 2: Attestation: I personally reviewed and interpreted this EKG as follows: EKG interpretation date: 07/22/19 EKG interpretation time: 23:49 Interpretation: Normal sinus rhythm at 88 beats a minute, normal axis, no acute ST or T wave changes. Discharge Plan Discharge Patient Disposition: Home, Self-Care Clinical Impression: Chest pain Qualifiers: Chest pain type: unspecified Qualified Code(s): R07.9 - Chest pain, unspecified Condition: Stable Prescriptions: No Action magnesium oxide 400 mg magnesium capsule 400 mg PO DAILY RF: 0 nitroglycerin 0.4 mg tablet, sublingual 0.4 mg SUBLINGUAL ONCE PRN (Reason: chest pain) RF: 0 fluticasone propionate [Flonase Allergy Relief] 50 mcg/actuation spray,suspension 2 spray INTRANASAL BID RF: 0 Victoza 2-Margarito 0.6 mg/0.1 mL (18 mg/3 mL) pen injector 1.8 mg SUBCUT DAILY RF: 0 polyethylene glycol 3350 [Miralax] 17 gram/dose powder 17 gm PO DAILY PRN (Reason: constipation) RF: 0 cyanocobalamin (vitamin B-12) 2,000 mcg tablet 2,000 mcg PO DAILY RF: 0 insulin aspart U-100 100 unit/mL solution See Rx Instructions SUBCUT TID RF: 0 aripiprazole [Abilify] 15 mg tablet 15 mg PO DAILY Qty: 30 RF: 1 lithium carbonate 300 mg tablet extended release 300 mg PO DAILY Qty: 30 RF: 0 nortriptyline 25 mg capsule 25 mg PO BEDTIME Qty: 30 RF: 1 amoxicillin 500 mg Capsule 1,000 mg PO BID RF: 0 atorvastatin 80 mg Tablet 80 mg PO DAILY RF: 0 citalopram 20 mg Tablet 20 mg PO DAILY RF: 0 trazodone 100 mg Tablet 200 mg PO BEDTIME RF: 0 pantoprazole 40 mg Tablet,Delayed Release (Dr/Ec) 40 mg PO BID RF: 0 ferrous sulfate 325 mg (65 mg iron) Tablet 325 mg PO EVERY OTHER DAY RF: 0 metoprolol succinate 50 mg Tablet Extended Release 24 Hr 50 mg PO DAILY RF: 0 levothyroxine 175 mcg Tablet 175 mcg PO DAILY RF: 0 metformin 1,000 mg Tablet 1,000 mg PO BID RF: 0 sodium chloride [Saline Nasal] 0.65 % Aerosol,[place] 1 spray INTRANASAL DAILY PRN (Reason: Nasal Congestion) RF: 0 cetirizine [Zyrtec] 10 mg Tablet 10 mg PO DAILY RF: 0 Levemir U-100 Insulin 100 unit/mL Solution 76 unit SUBCUT BEDTIME RF: 0 meclizine 25 mg tablet 25 mg PO QID PRN (Reason: dizziness) Qty: 20 RF: 0 diazepam [Valium] 2 mg tablet 2 mg PO BEDTIME PRN (Reason: UNKNOWN) RF: 0 Carafate 1 gram tablet 1 gm PO Q6H PRN (Reason: dyspepsia) 28 Days Qty: 112 RF: 0 Discharge Orders: Discharge Order (Routine); Ordered 07/23/19 Ordered By: Carmel Freeman Referrals: Alberto Ordonez MD [Primary Care Provider] - 1-3 days Discharge Diet: Advance as tolerated and Low Cholesterol Discharge Activity: Increase activity as tolerated Patient Instructions: Chest Pain (ED) Activity Restrictions/Additional Instructions: Please return to the ER immediately for any of the signs or symptoms listed on your discharge instruction sheets, worsening/changing of your symptoms, you are not getting better as quickly as expected, or for ANY other cause or concerns. You are leaving without complete evaluation of your heart and I have offered to keep you here for further testing but you have declined. Of course any heart problem can be life-threatening so if you change your mind or your symptoms change at all please return to the ER immediately for recheck. Be certain to follow-up for your outpatient stress test next Saturday as scheduled. Continue to take 324 mg of aspirin daily until advised further by your doctor. Again you are welcome to return here to the ER anytime for recheck if you change your mind. Coding Level of Care Code ED [employer] Exam Comprehensive
[2019-07-22 21:05] LABS: Basophils # 0.1 10^3/uL (0.0-0.1); Basophils % 0.7 %; Eosinophils % 8.3 %; Hematocrit 38.7 % (37.0-47.0); Hemoglobin 11.7 g/dL (11.5-15.3); Lymphocytes # 2.9 10^3/uL (0.8-4.8); Lymphocytes % 24.9 %; Mean Corpuscular HGB Conc 30.2 g/dL (30.0-36.0); Mean Corpuscular Hemoglobin 26.4 pg (28.0-34.0); Mean Corpuscular Volume 87.4 fL (81-99); Mean Platelet Volume 10.1 fL (7.4-10.4); Monocytes # 0.9 10^3/uL (0.2-0.9); Monocytes % 7.9 %; Neutrophils # 6.7 10^3/uL (1.8-7.7); Neutrophils % 57.6 %; Nucleated Red Blood Cells % 0 %; Platelet Count 311 10^3/cmm (130-400); Red Blood Count 4.43 10^6/uL (4.1-5.3); Red Cell Distribution Width 14.6 % (12.1-15.1); White Blood Count 11.7 10^3/uL (4.0-10.0)
[2019-07-22 21:19] LABS: INR 1.14 (0.8-1.2)
[2019-07-22 21:21] LABS: D Dimer <= 0.27 ug/mIFEU (0-0.59)
[2019-07-22 21:26] LABS: Troponin(5th) Baseline 6 ng/mL (0-10)
[2019-07-22 21:35] LABS: Alanine Aminotransferase 24 U/L (0-33); Alkaline Phosphatase 96 IU/L (35-105); Aspartate Amino Transferase 26 U/L (0-32); Blood Urea Nitrogen 9 mg/dL (6-20); Calcium 9.2 mg/dL (8.5-10.5); Carbon Dioxide 25 mmol/L (22-29); Chloride 100 mmol/L (98-107); Glomerular Filtration Rate 75.3 mL/min (90-130); Glucose 272 mg/dL (65-115); Lipase 19 U/L (13-60); Magnesium 2.1 mg/dL (1.7-2.3); NT Pro B Type Natriuretic Pept 5 pg/mL (0-125); Osmolality Calculated 294 mOsm/kg (285-295); Sodium 139 mmol/L (136-145); Total Bilirubin 0.3 mg/dL (0.15-1.2)
[2019-07-22 21:45] LABS: Amphetamines Screen Urine Negative (Negative); Barbiturates Screen Urine Negative (Negative); Benzodiazepines Screen Urine Positive (Negative); Cocaine Screen Urine Negative (Negative); Opiate Screen Urine Negative (Negative); PCP Screen Urine Negative (Negative); THC Screen Urine Negative (Negative)
[2019-07-22] MEDS: morphine 4 mg/mL SDV 1 mL IVP (21:52)
[2019-07-22 21:56] LABS: Alcohol Level < 10 mg/dL (0-10)
--- NOTE | 2019-07-22 22:13 | CTR_ITS ---
PROCEDURE INFORMATION: Exam: CT Angiography Chest With Contrast Exam date and time: 07/22/2019 10:14 PM Age: 54 years old Clinical indication: Other: Hypoxia; Chest pain; Prior surgery; Surgery date: 6+ months; Surgery type: Thyroid, stent; Patient HX: HX thyroid CA; Additional info: Cp, hypoxia TECHNIQUE: Imaging protocol: Computed tomographic angiography of the chest with intravenous contrast. 3D rendering: MIP and/or 3D reconstructed images were created by the technologist. Total DLP: 569.3 mGy-cm Radiation optimization: All CT scans at this facility use at least one of these dose optimization techniques: automated exposure control; mA and/or kV adjustment per patient size (includes targeted exams where dose is matched to clinical indication); or iterative reconstruction. Contrast material: OMNI 350; Contrast volume: 89 ml; Contrast route: 18G; COMPARISON: CT Chest/Abdomen/Pelvis wo IV 07/07/2017 4:04 PM FINDINGS: Pulmonary arteries: Normal. No pulmonary emboli. Aorta: Unremarkable. No aortic aneurysm. No aortic dissection. Lungs: Unremarkable. No consolidation. No masses. Pleural space: Unremarkable. No pneumothorax. No pleural effusion. Heart: Unremarkable. No cardiomegaly. No pericardial effusion. Adrenals: Stable 1.8 cm low-density nodule in the left adrenal gland. Lymph nodes: Unremarkable. No enlarged lymph nodes. Bones/joints: Unremarkable. No acute fracture. Soft tissues: Unremarkable. CT/CT angio chest PE protcl [id number] IMPRESSION: 1. No evidence for pulmonary embolus or other acute pathology. 2. Stable low-density nodule in the left adrenal gland, consistent with a benign adenoma. Radiation Dose CTDIVOL = (mGy): DLP = 569.3 (mGy-cm)
[2019-07-22 22:21] LABS: Specific Gravity, Urine 1.005 (1.005-1.030); Urine Appearance Clear (CLEAR); Urine Color Yellow (Yellow); pH Urine 7 (5-7)
[2019-07-22 22:22] LABS: Add Urine Culture? No; Bilirubin Urine Neg (NEGATIVE); Blood Urine Neg (Negative); Glucose Urine UA 4+ (Normal); Ketones Urine Negative (Negative); Leukocyte Esterase Urine Negative (Negative); Nitrate Urine Negative (Negative); Protein Urine Neg (Negative); Squamous Epithelial Cell Urine 0-4 (0-5); Urobilinogen Urine Norm (Negative)
--- NOTE | 2019-07-22 22:29 | ECG_ITS ---
Measurements Intervals [place] Rate: 88 P: 47 WI: 162 QRS: 1 QRSD: 88 T: 57 QT: 411 QTc: 498 SINUS RHYTHM Compared to ECG 07/10/2019 16:06:21 No significant changes Electronically Signed On 07-23-2019 15:31:07 CDT by Chuck Gaming M.D. [email or web address]
[2019-07-22 22:47] LABS: Troponin 5 2HR 6.08 ng/mL (0-10); Troponin 5 2HR Delta 0.08 ABS# (0-10)
[2019-07-22] MEDS: famotidine 20 mg/2 mL INJ 40 MG IVP (22:59)
[2019-07-22] MEDS: diphenhydrAMINE 50 mg/mL SDV 1mL IVP (22:59)
--- NOTE | 2019-07-22 23:22 | PC.NURSE ---
patient to CT
[2019-07-22] MEDS: iohexol 350 mg/mL 100 mL Btl IV (23:40)
[2019-07-23 00:04] VITALS: BP 120/74; PULSE 90; RESP 14; O2SAT 93
[2019-07-23 00:32] VITALS: BP 118/80; PULSE 91; RESP 16; O2SAT 94
== END 2019-07-23 00:32 | disposition home or self-care (01) ==
PROVIDERS: Emergency Provider Emergency Medicine; Family Provider Family Medicine; PCP Family Medicine
DX: R07.9 Chest pain, unspecified (principal); I50.9 Heart failure, unspecified; I25.10 Atherosclerotic heart disease of native coronary artery without angina pectoris; F43.12 Post-traumatic stress disorder, chronic; F33.3 Major depressive disorder, recurrent, severe with psychotic symptoms; F60.3 Borderline personality disorder; E11.9 Type 2 diabetes mellitus without complications; I25.2 Old myocardial infarction; Z79.4 Long term (current) use of insulin; Z87.891 Personal history of nicotine dependence
CPT/HCPCS: 12345; 36415; 71045; 71275; 80053; 80306; 80307; 81001; 83690; 83735; 83880; 84484; 85025; 85378; 85610; 93005; 96361; 96374; 96375; 99283; 99284; J1200; J2270; J2405; J2930; J3490; J7030; Q9967

== ENCOUNTER 2019-07-28 09:17 | Outpatient (CLI) | payer MEDICARE, MEDICAID, SELFPAY ==
--- NOTE | 2019-07-28 10:31 | ECG_ITS ---
NAME OF STUDY: LEXISCAN SESTAMIBI STRESS TEST INDICATION: [Chest Pain, NOTE: Please note that this is the electrocardiogram portion of the Lexiscan/Sestamibi stress test. The perfusion scan will be documented separately. DATA: Baseline heart rate was 93 beats per minute. Baseline blood pressure was 112/70 millimeters of mercury. Target heart rate was 168. Maximum heart rate achieved was 108. which was 64 % of the predicted target heart rate. Maximum blood pressure was 151/83 millimeters of mercury. The reason for ending the test was completion of the protocol. The patient experience shortness of breath which was then resolved at the end of the test. ELECTROCARDIOGRAM: BASELINE: Sinus rhythm. Normal axis. Otherwise, no ST-T changes suggestive of ischemia noted. No arrhythmia noted. EXERCISE: After Lexiscan injection, no ST-T changes suggestive of ischemic noted. No arrhythmia noted. 1.EKG not suggestive of ischemia 2.Lexiscan injection unremarkable. 3.Perfusion scan will be documented separately. Electronically Signed On 07-28-2019 17:28:58 CDT by Jose Alejandro Jeffrey M.D. [email or web address]
--- NOTE | 2019-07-28 10:32 | NMCV_ITS ---
NM laurie perf SPECT r/s* [id number] Bella Chandler Age: 54 Gender: F : 1965 Exam Date: 07/28/2019 10:34 Ordering Phys: Javad Valle DO Technologist: YVONNE Ritter Exam Location: [facility] Indications: SOB STRESS TEST [facility] IMAGE PROTOCOL Rest/Stress 1 Lexiscan Day Radiopharmaceutical Dose (mCi) Administration Site Administered by Rest: Tc-99m 10.7 IV YVONNE Ritter Sestamibi Stress:Tc-99m 32.5 IV YVONNE Ritter Sestamibi Rest: 28-Jul-2019 60 Discovery 630 Stress: 28-Jul-2019 45 Discovery 630 0.4mg Lexiscan. Images obtained in supine and prone position. SPECT RESULTS Technical Quality: Good Raw Data Analysis: Breast attenuation Image Corrections: Patient motion artifact - motion correction applied to prone images. Summed Stress Score: 0 Summed Rest Score: 0 Summed Difference Score: 0 PERFUSION FINDINGS SPECT images demonstrate homogeneous tracer distribution throughout the myocardium. FUNCTIONAL RESULTS (calculated via Gated SPECT) Stress Image LV EF (%): 64 Stress EDV (mL):66 TID: 1.09 Stress ESV (mL):24 FUNCTIONAL FINDINGS: The left ventricle is normal in size. Transient Ischemia Dilatation of 1.1. There is normal left ventricular systolic function. The left ventricular ejection fraction is normal with a value of 64%. There is normal left ventricular wall thickening. Normal end-diastolic and end-systolic volumes. IMPRESSIONS 1. Myocardial perfusion imaging is normal. 2. Overall left ventricular systolic function is normal without regional wall motion abnormalities. 3. The left ventricular ejection fraction is normal with a value of 64%. 4. This study suggests a low likelihood of angiographically significant coronary artery disease. Monik Khan MD (Electronically Signed) Final Date: 29 July 2019 13:03 S
[2019-07-28 10:35] VITALS: BMI 31.9
[2019-07-28] MEDS: regadenoson 0.4 Mg/5 ml Syringe IVP (11:12)
[2019-07-28] MEDS: ondansetron 2 mg/ML SDV 2 mL 4 MG IVP (11:17)
[2019-07-28 11:33] VITALS: BP 125/73; PULSE 97
== END 2019-07-28 09:18 | disposition home or self-care (01) ==
LOC: RAD 09:22 → CDL 09:27
PROVIDERS: Family Provider Family Medicine; PCP Family Medicine; Visit Provider Family Medicine
DX: R07.9 Chest pain, unspecified (principal); I25.10 Atherosclerotic heart disease of native coronary artery without angina pectoris
CPT/HCPCS: 78452; 93017; 96374; 96375; A9500; J2405; J2785

== ENCOUNTER → 2019-08-13 07:46 | Outpatient (BNVA) | payer MEDICARE, MEDICAID, SELFPAY | PROVIDERS: Family Provider Family Medicine; PCP Family Medicine; Visit Provider Nurse Practitioner | DX: F43.12 Post-traumatic stress disorder, chronic (principal); F33.3 Major depressive disorder, recurrent, severe with psychotic symptoms; F60.3 Borderline personality disorder | CPT/HCPCS: 99214 ==

== ENCOUNTER → 2019-08-24 08:39 | Outpatient (BNVA) | payer MEDICARE, MEDICAID, SELFPAY | PROVIDERS: Family Provider Family Medicine; PCP Family Medicine; Visit Provider Social Worker | DX: F43.12 Post-traumatic stress disorder, chronic (principal); F33.3 Major depressive disorder, recurrent, severe with psychotic symptoms; F60.3 Borderline personality disorder | CPT/HCPCS: 90834 ==

== ENCOUNTER 2019-08-27 01:32 | Emergency (ER) | payer MEDICARE, MEDICAID, SELFPAY ==
[2019-08-27 01:39] VITALS: BP 154/85; PULSE 109; RESP 18; TEMP 36; O2SAT 94; BMI 33.5
--- NOTE | 2019-08-27 01:40 | CTR_ITS ---
PROCEDURE INFORMATION: Exam: CT Head Without Contrast Exam date and time: 08/27/2019 1:40 AM Age: 54 years old Clinical indication: Injury or trauma; Fall; Work related; Initial encounter; Additional info: Fall, dizzy TECHNIQUE: Imaging protocol: Computed tomography of the head without contrast. Radiation optimization: All CT scans at this facility use at least one of these dose optimization techniques: automated exposure control; mA and/or kV adjustment per patient size (includes targeted exams where dose is matched to clinical indication); or iterative reconstruction. COMPARISON: CT head wo con* [id number] 04/01/2019 11:25 AM RADIATION DOSE METRICS: Total DLP: 858.8 mGy-cm FINDINGS: Brain: Normal. No hemorrhage. Unremarkable white matter. No mass effect. Ventricles: Normal. No ventriculomegaly. Bones/joints: Unremarkable. No acute fracture. Sinuses: Visualized sinuses are unremarkable. No fluid levels. Mastoid air cells: Visualized mastoid air cells are well aerated. Soft tissues: Unremarkable. CT/CT head wo con* [id number] IMPRESSION: No acute intracranial abnormality. Radiation Dose CTDIVOL = (mGy): DLP = 858.8 (mGy-cm)
--- NOTE | 2019-08-27 01:44 | XR_ITS ---
WS: [id number] LEFT HIP HISTORY: fall, pain COMPARISON: 04/16/2019 LEFT hip: No definite fracture identified. There is a very faint lucency through the femoral neck beg inning superiorly. No adjacent soft tissue edema. Mild osteophytic ridging around the hip joint. No o steoblastic or osteolytic bone disease. XR/XR hip LT 2-3V wo/w pel* [id number] IMPRESSION: 1. Indeterminate for femoral neck fracture. Recommend follow-up CT evaluation of the LEFT hip to exclude occult fracture. 2. Mild osteophytic ridging around the acetabulum.
--- NOTE | 2019-08-27 01:44 | XR_ITS ---
WS: [id number] LUMBAR SPINE: 3 VIEWS TECHNIQUE: AP, lateral and L5-S1 spot. HISTORY: fall COMPARISON: 09/02/2017 Very mild RIGHT convex curvature thoracic spine. Facet joint disease at L4-5 and L5-S1. No fractures. No loss of disc space or vertebral body height. Bilateral SI joint sclerosis. XR/XR lumbar spine 2-3V* [id number] IMPRESSION: 1. Mild RIGHT convex curvature of the lumbar spine. 2. Moderate facet joint arthritis at L4-5 and L5-S1. 3. Bilateral sacroiliitis with progression since 09/02/2017.
--- NOTE | 2019-08-27 01:46 | ED_ITS ---
HPI - Fall General: Chief Complaint: Fall Stated Complaint: Fall From Bed Time Seen by Provider: 08/27/19 01:39 Source: patient Mode of arrival: ambulatory Limitations: no limitations History of Present Illness: HPI Narrative: Patient comes in today for complaints of falling out of bed twice tonight. Patient reports some low back pain and some left hip pain. Patient has been able to ambulate. Patient has diabetes and some depression which she takes multiple medications. Patient appears well. Patient appears in mild to moderate pain. Review of Systems General: Reports: 10 or more systems reviewed and unremarkable except in HPI and below Musc: Reports: back pain and joint pain (left hip) [facility] ED PFSH: Medical History (Updated 08/27/19 @ 02:44 by BRITTANIE Reed) Anxiety Bipolar disorder Borderline personality disorder CAD (coronary artery disease) Cardiomyopathy CHF (congestive heart failure) COPD (chronic obstructive pulmonary disease) Depression Diabetes Hyperglycemia Hyperlipidemia Hypokalemia Major depressive disorder, recurrent, severe with psychotic symptoms Myocardial infarction Post-traumatic stress disorder, chronic Psychosis Thyroid cancer Surgical History History of appendectomy History of bladder suspension procedure History of breast augmentation History of breast biopsy History of History of cholecystectomy History of coronary angioplasty History of hysterectomy History of thyroidectomy History of tonsillectomy Hx of breast reduction, elective Social History Smoking and tobacco status: former smoker History of recent travel: No Physical Exam Const: COMMON NORMALS: no acute distress and patient oriented x3 GENERAL APPEARANCE: cooperative HENMT: COMMON NORMALS: normocephalic, TM's normal bilaterally and Normal external nose present HEAD & SCALP: normal to inspection and normocephalic NOSE: Normal external nose present TYMPANIC MEMBRANE: TM's normal bilaterally MOUTH: Normal oral and palatal mucosa present THROAT: posterior oropharynx normal Eye: GENERAL EYE: appearance normal, both eyes and all related structures Neck/C-Spine: COMMON NORMALS: full ROM Lymph: LYMPHATIC: no lymphadenopathy noted Chest: COMMONS NORMALS: normal inspection of the chest Resp: COMMON NORMALS: normal respiratory effort EFFORT & INSPECTION: Yes able to speak in complete sentences Cardio: COMMON NORMALS: regular rate and regular rhythm RATE: regular rate RHYTHM: regular rhythm GI: COMMON NORMALS: non-tender : COMMON NORMALS: Yes no CVA tenderness BLADDER/KIDNEY EXAM: Yes no CVA tenderness Back/Pelvis: COMMON NORMALS: no CVA tenderness LUMBAR SPINE/LOWER BACK: Yes paraspinal muscle tenderness Lumbar paraspinal muscle tenderness: left Extremity: COMMON NORMALS: normal to inspection Neuro: COMMON NORMALS: patient oriented x3 and moves all extremities Psych: COMMON NORMALS: mental status grossly normal and cooperative Skin: COMMON NORMALS: no rashes or lesions noted GENERAL SKIN EXAM: no rashes or lesions noted Course Vital Signs: Vital signs: Vital Signs Temperature 96.8 F L 08/27/19 01:39 Pulse Rate 98 08/27/19 02:11 Respiratory Rate 18 08/27/19 01:39 Blood Pressure 172/99 08/27/19 02:11 Pulse Oximetry 94 08/27/19 01:39 MDM - Fall MDM Narrative: Medical decision making narrative: Patient comes in today for complaints of fall from bed. Patient states that she frequently falls but tonight when she fell she injured her back. Patient reports some low back pain and left hip area pain. On exam we note that patient has some muscle tenderness and sacroiliac area pain on the left side. Patient is able to stand and ambulate. Vital signs were normal. Orthostatic pressures were negative. EKG with sinus rhythm. Differential diagnosis intracerebral bleeding, stroke, polypharmacy, adverse drug effect, low back strain, fracture. X-rays of the back and hip pelvic area was negative for any fracture. CT scan noted no intracranial bleeding or fracture. Laboratory values noted a sodium of 133 with elevated glucose. CBC was unremarkable. Reviewed with patient with recommendations for treatment and follow-up. Patient was given a hydrocodone 10/325 tablet in the ER for her pain with good results. Patient was recommended to use Tylenol and ibuprofen at home. And to follow-up with primary care. Lab Data: Labs: Lab Results 08/27/19 Range/Units 02:00 Sodium 133 L (136-145) mmol/L Potassium 3.5 (3.5-5.1) mmol/L Chloride 96 L (98-107) mmol/L ALT 35 H (0-33) U/L Alkaline Phosphata se 111 H (35-105) IU/L Albumin 4.6 (3.5-5.2) g/dL EKG Data^: EKG 1: Attestation: I personally reviewed and interpreted this EKG as follows: (0249, sinus rhythm, rate 98 regular, no ectopy, no ST elevation.) Discharge Plan Discharge Patient Disposition: Home, Self-Care Clinical Impression: Acute pain of left hip Low back pain Qualifiers: Chronicity: acute Back pain laterality: left Sciatica presence: unspecified whether sciatica present Qualified Code(s): M54.5 - Low back pain Condition: Stable Prescriptions: No Action magnesium oxide 400 mg magnesium capsule 400 mg PO DAILY RF: 0 nitroglycerin 0.4 mg tablet, sublingual 0.4 mg SUBLINGUAL ONCE PRN (Reason: chest pain) RF: 0 fluticasone propionate [Flonase Allergy Relief] 50 mcg/actuation spray,suspe nsion 2 spray INTRANASAL BID RF: 0 Victoza 2-Margarito 0.6 mg/0.1 mL (18 mg/3 mL) pen injector 1.8 mg SUBCUT DAILY RF: 0 polyethylene glycol 3350 [Miralax] 17 gram/dose powder 17 gm PO DAILY PRN (Reason: constipation) RF: 0 cyanocobalamin (vitamin B-12) 2,000 mcg tablet 1,000 mcg PO DAILY RF: 0 insulin aspart U-100 100 unit/mL solution See Rx Instructions SUBCUT TID RF: 0 amlodipine 5 mg tablet 5 mg PO DAILY RF: 0 sucralfate 1 gram tablet 1 gm PO Q6H PRNRF: 0 citalopram 20 mg tablet 20 mg PO DAILY Qty: 30 RF: 0 aripiprazole [Abilify] 15 mg tablet 15 mg PO DAILY Qty: 30 RF: 0 trazodone 100 mg tablet 200 mg PO BEDTIME Qty: 60 RF: 0 lithium carbonate 300 mg tablet extended release 300 mg PO BID Qty: 60 RF: 0 diazepam [Valium] 2 mg tablet 2 mg PO BEDTIME Qty: 30 RF: 0 nortriptyline 25 mg capsule 25 mg PO BEDTIME Qty: 30 RF: 1 atorvastatin 80 mg Tablet 80 mg PO DAILY RF: 0 pantoprazole 40 mg Tablet,Delayed Release (Dr/Ec) 40 mg PO BID RF: 0 ferrous sulfate 325 mg (65 mg iron) Tablet 325 mg PO EVERY OTHER DAY RF: 0 metoprolol succinate 50 mg Tablet Extended Release 24 Hr 50 mg PO DAILY RF: 0 levothyroxine 175 mcg Tablet 175 mcg PO DAILY RF: 0 metformin 1,000 mg Tablet 1,000 mg PO BID RF: 0 sodium chloride [Saline Nasal] 0.65 % Aerosol,[place] 1 spray INTRANASAL DAILY PRN (Reason: Nasal Congestion) RF: 0 cetirizine [Zyrtec] 10 mg Tablet 10 mg PO DAILY RF: 0 Levemir U-100 Insulin 100 unit/mL Solution 76 unit SUBCUT BEDTIME RF: 0 meclizine 25 mg tablet 25 mg PO QID PRN (Reason: dizziness) Qty: 20 RF: 0 Discharge Orders: Discharge Order (Routine); Ordered 08/27/19 Ordered By: Yoseph Hsu Referrals: Alberto Ordonez MD [Primary Care Provider] - Discharge Activity: Increase activity as tolerated Patient Instructions: Back Pain (ED) Activity Restrictions/Additional Instructions: Drink plenty of water. Activity as tolerated. Continue with routine medications as directed. Use acetaminophen or ibuprofen as needed for pain. Follow-up with primary care in one week. Return to the ER for high fever or for worsening signs and symptoms. 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
[2019-08-27 02:11] VITALS: BP 146/91; BP 171/75; BP 172/99; PULSE 103; PULSE 104; PULSE 98
[2019-08-27 02:35] LABS: Alanine Aminotransferase 35 U/L (0-33); Albumin Level 4.6 g/dL (3.5-5.2); Alkaline Phosphatase 111 IU/L (35-105); Chloride 96 mmol/L (98-107); Potassium 3.5 mmol/L (3.5-5.1); Sodium 133 mmol/L (136-145)
[2019-08-27] MEDS: HYDROcodone-acetaminophen 10-325 mg Tablet 1 TAB PO (02:37)
[2019-08-27 02:50] LABS: Anion Gap 21.5 (5-19); Aspartate Amino Transferase 26 U/L (0-32); Blood Urea Nitrogen 7 mg/dL (6-20); Calcium 9.1 mg/dL (8.5-10.5); Carbon Dioxide 19 mmol/L (22-29); Globulin 2.8 g/dL (1.3-4.6); Glomerular Filtration Rate 65.8 mL/min (90-130); Glucose 335 mg/dL (65-115); Osmolality Calculated 285 mOsm/kg (285-295); Total Bilirubin 0.4 mg/dL (0.15-1.2); Total Protein 7.4 g/dL (6.6-8.7)
[2019-08-27 02:55] LABS: Alcohol Level < 10 mg/dL (0-10)
[2019-08-27 02:56] LABS: Basophils # 0.1 10^3/uL (0.0-0.1); Basophils % 0.5 %; Eosinophils # 0.3 10^3/uL (0.0-0.8); Eosinophils % 1.9 %; Hematocrit 42.1 % (37.0-47.0); Hemoglobin 12.6 g/dL (11.5-15.3); Lymphocytes # 2.6 10^3/uL (0.8-4.8); Lymphocytes % 17.5 %; Mean Corpuscular HGB Conc 29.9 g/dL (30.0-36.0); Mean Corpuscular Volume 83.7 fL (81-99); Mean Platelet Volume 9.9 fL (7.4-10.4); Monocytes # 1.2 10^3/uL (0.2-0.9); Neutrophils # 10.8 10^3/uL (1.8-7.7); Neutrophils % 71.4 %; Nucleated Red Blood Cells % 0 %; Platelet Count 344 10^3/cmm (130-400); Red Blood Count 5.03 10^6/uL (4.1-5.3); Red Cell Distribution Width 15.1 % (12.1-15.1); White Blood Count 15.1 10^3/uL (4.0-10.0)
[2019-08-27 03:11] VITALS: BP 160/100; PULSE 78; RESP 18; O2SAT 97
== END 2019-08-27 03:04 | disposition home or self-care (01) ==
PROVIDERS: Emergency Provider Nurse Practitioner Family; Family Provider Family Medicine; PCP Family Medicine
DX: M54.5 Low back pain (principal); M25.552 Pain in left hip; Z79.4 Long term (current) use of insulin; I25.10 Atherosclerotic heart disease of native coronary artery without angina pectoris; I50.9 Heart failure, unspecified; J44.9 Chronic obstructive pulmonary disease, unspecified; E11.9 Type 2 diabetes mellitus without complications; E78.5 Hyperlipidemia, unspecified; I25.2 Old myocardial infarction; Z85.850 Personal history of malignant neoplasm of thyroid; Z87.891 Personal history of nicotine dependence; Z98.61 Coronary angioplasty status; Z79.899 Other long term (current) drug therapy
CPT/HCPCS: 12345; 70450; 72100; 73502; 80053; 80307; 85025; 99282; 99283

== ENCOUNTER → 2019-09-03 08:20 | Outpatient (BNVA) | payer MEDICARE, MEDICAID, SELFPAY | PROVIDERS: Family Provider Family Medicine; PCP Family Medicine; Visit Provider Nurse Practitioner | DX: F43.12 Post-traumatic stress disorder, chronic (principal); F33.3 Major depressive disorder, recurrent, severe with psychotic symptoms; F60.3 Borderline personality disorder | CPT/HCPCS: 99214 ==

== ENCOUNTER → 2019-09-16 07:45 | Outpatient (BNVA) | payer MEDICARE, MEDICAID, SELFPAY | PROVIDERS: Family Provider Family Medicine; PCP Family Medicine; Visit Provider Nurse Practitioner | DX: F60.3 Borderline personality disorder (principal); F33.3 Major depressive disorder, recurrent, severe with psychotic symptoms; F43.12 Post-traumatic stress disorder, chronic | CPT/HCPCS: 99214 ==